=== PATIENT | female | born 1970 | race Caucasian/White ===

== ENCOUNTER → 2017-07-21 | Outpatient (CLI) | payer OTHER ==
--- NOTE | 2017-07-22 06:44 | CT ---
EXAMINATION TYPE: CT abdomen pelvis w con DATE OF EXAM: 07/21/2017 HISTORY: Right groin pain per patient. Abdominal and pelvic pain per order. CT DLP: 1913.8mGycm Automated Exposure Control for Dose Reduction was Utilized. CONTRAST: CT scan of the abdomen and pelvis is performed with IV Contrast, patient injected with 100 mL of Isov ue M300. COMPARISON: CT abdomen and pelvis December 10, 2013 FINDINGS: LUNG BASES: There is some central linear scarring and/or atelectasis redemonstrated bilaterally. LIVER/GB: No significant abnormality is appreciated. PANCREAS: No significant abnormality is seen. SPLEEN: Splenomegaly is redemonstrated measuring up to 17.5 cm long axis coronal image 61, this is pe rhaps even slightly larger versus prior exam ADRENALS: No significant abnormality is seen. KIDNEYS: There is redemonstration of subcentimeter round low dense lesions scattered throughout both kidneys felt to reflect simple cysts. BOWEL: Appendix does not fill with contrast but does not show suspicious surrounding inflammatory alia nge. It is mildly thickened up to 8 mm near base with gradual tapering towards the tip. Oral contrast reaches level of the sigmoid rectal colon. There is no suspicious small or large bowel dilatation. UTERUS/ADNEXA: Uterus is surgically absent or markedly atrophic in appearance. Left ovary is unremark able on axial image 64. Right ovary is slightly larger with medial 2.6 x 2.4 cm round low dense lesio n favoring small ovarian cyst axial image 64. This can be confirmed with pelvic ultrasound follow-up if desired. LYMPH NODES: No greater than 1cm abdominal or pelvic lymph nodes are appreciated. OSSEOUS STRUCTURES: Sclerotic foci right femoral head and left superior acetabulum coronal image 78 f avor benign bone islands not significantly changed from prior. OTHER: No significant additional abnormality is seen. IMPRESSION: Increasing splenomegaly noted may warrant further clinical workup. Mildly dilated appendi ceal base without surrounding inflammatory change. Probable 2.6 cm right ovarian cyst. Consider pelvi c ultrasound confirmation.
== END | disposition home or self-care (01) ==
LOC: RADCTMAIN 13:47
PROVIDERS: ATTEND Internal Medicine
DX: R16.1 Splenomegaly, not elsewhere classified (principal); R10.31 Right lower quadrant pain
CPT/HCPCS: 74177; Q9967

== ENCOUNTER 2017-10-22 21:58 | Emergency (ER) | payer OTHER ==
[2017-10-22] MEDS ORDERED: KETOROLAC 30 MG/ML 1 ML VIAL IVP STA (23:24)
--- NOTE | 2017-10-22 23:28 | ED ---
Abdominal Pain HPI - General Chief Complaint: Abdominal Pain Stated Complaint: Abd pain Time Seen by Provider: 10/22/17 22:58 Source: patient Mode of arrival: ambulatory Limitations: no limitations - History of Present Illness Initial Comments: This patient is a 47-year-old woman who presents to be evaluated for right lower quadrant pain that started approximately 2-3 hours ago, while she was sitting on the couch. Patient describes pain as being constant, sharp, moderate intensity. Patient is referring to it as an ovarian cyst though she states she does not have a history of this. Patient denies any associated symptoms. She has not discovered any relieving factors and states that the pain is worse if you press on it. MD Complaint: abdominal pain Onset/Timin -: hour(s) Location: RLQ Radiation: none Migration to: no migration Severity: moderate Quality: sharp Consistency: constant Improves With: nothing Worsens With: nothing Associated Symptoms: denies other symptoms - Related Data Previous Rx's Medication Instructions Recorded Dicyclomine [Bentyl] 20 mg PO QID #15 tablet 10/23/17 Allergies Allergy/AdvReac Type Severity Reaction Status Date / Time adhesive tape Allergy Rash/Hives Verified 10/22/17 22:38 Review of Systems ROS Statement: Those systems with pertinent positive or pertinent negative responses have been documented in the HPI. ROS Other: All systems not noted in ROS Statement are negative. Constitutional: Denies: fever, chills Respiratory: Denies: cough, dyspnea, wheezes Cardiovascular: Denies: chest pain, palpitations, edema Gastrointestinal: Reports: as per HPI, abdominal pain. Denies: nausea, vomiting , diarrhea Genitourinary: Denies: dysuria, hematuria Musculoskeletal: Denies: back pain Skin: Denies: rash Neurological: Denies: headache, weakness, numbness Past Medical History Additional Past Medical History / Comment(s): ovarian cysts History of Any Multi-Drug Resistant Organisms: None Reported Past Surgical History: Hysterectomy Past Psychological History: No Psychological Hx Reported Smoking Status: Never smoker Past Alcohol Use History: None Reported Past Drug Use History: None Reported General Exam Limitations: no limitations General appearance: alert, in no apparent distress Head exam: Present: atraumatic, normocephalic Eye exam: Present: normal appearance. Absent: scleral icterus, conjunctival injection ENT exam: Present: normal oropharynx Respiratory exam: Present: normal lung sounds bilaterally. Absent: respiratory distress, wheezes, rales, rhonchi, stridor Cardiovascular Exam: Present: regular rate, normal rhythm, normal heart sounds. Absent: systolic murmur, diastolic murmur, rubs, gallop GI/Abdominal exam: Present: soft, tenderness. Absent: distended, guarding, rebound, rigid, mass, pulsatile mass, hernia Extremities exam: Present: normal inspection, normal capillary refill. Absent: pedal edema, calf tenderness Back exam: Present: normal inspection. Absent: CVA tenderness (R), CVA tenderness (L) Neurological exam: Present: alert Skin exam: Present: warm, dry, intact, normal color. Absent: rash Course Vital Signs 10/22/17 21:59 Temperature 98 F Pulse Rate 88 Respiratory 20 Rate Blood Pressure 185/106 O2 Sat by Pulse 98 Oximetry Medical Decision Making - Lab Data Result diagrams: 10/22/17 23:44 10/22/17 23:44 Lab Results 10/22/17 10/22/17 10/22/17 Range/Units 23:44 23:44 23:44 WBC 7.5 (3.8-10.6) k/uL RBC 4.98 (3.80-5.40) m/uL Hgb 13.9 (11.4-16.0) gm/dL Hct 41.0 (34.0-46.0) % MCV 82.2 (80.0-100.0) fL MCH 27.8 (25.0-35.0) pg MCHC 33.8 (31.0-37.0) g/dL RDW 14.2 (11.5-15.5) % Plt Count 154 (150-450) k/uL Neutrophils % 69 % Lymphocytes % 23 % Monocytes % 5 % Eosinophils % 0 % Basophils % 0 % Neutrophils # 5.2 (1.3-7.7) k/uL Lymphocytes # 1.8 (1.0-4.8) k/uL Monocytes # 0.4 (0-1.0) k/uL Eosinophils # 0.0 (0-0.7) k/uL Basophils # 0.0 (0-0.2) k/uL Sodium 140 (137-145) mmol/L Potassium 3.6 (3.5-5.1) mmol/L Chloride 105 (98-107) mmol/L Carbon Dioxide 24 (22-30) mmol/L Anion Gap 11 mmol/L BUN 8 (7-17) mg/dL Creatinine 0.70 (0.52-1.04) mg/dL Est GFR (CKD-EPI)AfAm >90 (>60 ml/min/1.73 sqM) Est GFR (CKD-EPI)NonAf >90 (>60 ml/min/1.73 sqM) Glucose 94 (74-99) mg/dL Calcium 9.2 (8.4-10.2) mg/dL Total Bilirubin 0.7 (0.2-1.3) mg/dL AST 23 (14-36) U/L ALT 29 (9-52) U/L Alkaline Phosphatase 72 (38-126) U/L Total Protein 7.3 (6.3-8.2) g/dL Albumin 4.2 (3.5-5.0) g/dL Amylase 52 (30-110) U/L Lipase 40 (23-300) U/L Urine Color Urine Appearance (Clear) Urine pH (5.0-8.0) Ur Specific [place] (1.001-1.035) Urine Protein (Negative) Urine Glucose (UA) (Negative) Urine Ketones (Negative) Urine Blood (Negative) Urine Nitrite (Negative) Urine Bilirubin (Negative) Urine Urobilinogen (<2.0) mg/dL Ur Leukocyte Esterase (Negative) Urine HCG, Qual Not Detected (Not Detectd) 10/22/17 Range/Units 23:44 WBC (3.8-10.6) k/uL RBC (3.80-5.40) m/uL Hgb (11.4-16.0) gm/dL Hct (34.0-46.0) % MCV (80.0-100.0) fL MCH (25.0-35.0) pg MCHC (31.0-37.0) g/dL RDW (11.5-15.5) % Plt Count (150-450) k/uL Neutrophils % % Lymphocytes % % Monocytes % % Eosinophils % % Basophils % % Neutrophils # (1.3-7.7) k/uL Lymphocytes # (1.0-4.8) k/uL Monocytes # (0-1.0) k/uL Eosinophils # (0-0.7) k/uL Basophils # (0-0.2) k/uL Sodium (137-145) mmol/L Potassium (3.5-5.1) mmol/L Chloride (98-107) mmol/L Carbon Dioxide (22-30) mmol/L Anion Gap mmol/L BUN (7-17) mg/dL Creatinine (0.52-1.04) mg/dL Est GFR (CKD-EPI)AfAm (>60 ml/min/1.73 sqM) Est GFR (CKD-EPI)NonAf (>60 ml/min/1.73 sqM) Glucose (74-99) mg/dL Calcium (8.4-10.2) mg/dL Total Bilirubin (0.2-1.3) mg/dL AST (14-36) U/L ALT (9-52) U/L Alkaline Phosphatase (38-126) U/L Total Protein (6.3-8.2) g/dL Albumin (3.5-5.0) g/dL Amylase (30-110) U/L Lipase (23-300) U/L Urine Color Light Yellow Urine Appearance Clear (Clear) Urine pH 6.0 (5.0-8.0) Ur Specific [place] 1.006 (1.001-1.035) Urine Protein Negative (Negative) Urine Glucose (UA) Negative (Negative) Urine Ketones Negative (Negative) Urine Blood Negative (Negative) Urine Nitrite Negative (Negative) Urine Bilirubin Negative (Negative) Urine Urobilinogen <2.0 (<2.0) mg/dL Ur Leukocyte Esterase Negative (Negative) Urine HCG, Qual (Not Detectd) Disposition Clinical Impression: Abdominal pain Disposition: HOME SELF-CARE Condition: Good Instructions: Abdominal Pain (ED) Prescriptions: Dicyclomine [Bentyl] 20 mg PO QID #15 tablet Is patient prescribed a controlled substance at d/c from ED?: No Referrals: Farnaz Foster MD [Primary Care Provider] - 1-2 days Marianela Lyles MD [STAFF PHYSICIAN] - 1-2 days
[2017-10-22 23:55] LABS: Appearance,Urine Clear (Clear); Basophils % (A) 0 %; Bilirubin,Urine Negative (Negative); Blood,Urine Negative (Negative); Color,Urine Light Yellow; Eosinophils % (A) 0 %; Glucose,Urine (UA) Negative (Negative); HGB 13.9 gm/dL (11.4-16.0); Ketones,Urine Negative (Negative); Leukocyte Esterase,Urine Negative (Negative); Lymphocytes # (A) 1.8 k/uL (1.0-4.8); Lymphocytes % (A) 23 %; MCH 27.8 pg (25.0-35.0); MCHC 33.8 g/dL (31.0-37.0); MCV 82.2 fL (80.0-100.0); Mean Platelet Volume 8.2; Monocytes # (A) 0.4 k/uL (0-1.0); Monocytes % (A) 5 %; Neutrophils # (A) 5.2 k/uL (1.3-7.7); Neutrophils % (A) 69 %; Nitrite,Urine Negative (Negative); Platelet Count 154 k/uL (150-450); Protein,Urine Negative (Negative); RBC 4.98 m/uL (3.80-5.40); RDW 14.2 % (11.5-15.5); Specific Gravity,Urine 1.006 (1.001-1.035); Urobilinogen,Urine <2.0 mg/dL (<2.0); WBC 7.5 k/uL (3.8-10.6)
--- NOTE | 2017-10-23 00:16 | XR ---
EXAMINATION TYPE: XR KUB DATE OF EXAM: 10/23/2017 COMPARISON: NONE HISTORY: Right lower quadrant pain TECHNIQUE: 2 views FINDINGS: 2 upright views show normal bowel gas pattern. There is no sign of intestinal obstruction o r pneumoperitoneum. Fecal pattern is normal. There are no pathologic calcifications over the kidneys. Lung bases are clear. There is no evidence of a mass. IMPRESSION: Nonacute abdomen.
[2017-10-23 00:40] LABS: ALT 29 U/L (9-52); AST 23 U/L (14-36); Albumin 4.2 g/dL (3.5-5.0); Alkaline Phosphatase 72 U/L (38-126); Amylase 52 U/L (30-110); Anion Gap 11 mmol/L; Blood Urea Nitrogen 8 mg/dL (7-17); Calcium 9.2 mg/dL (8.4-10.2); Carbon Dioxide 24 mmol/L (22-30); Chloride 105 mmol/L (98-107); Glucose 94 mg/dL (74-99); Lipase 40 U/L (23-300); Potassium 3.6 mmol/L (3.5-5.1); Sodium 140 mmol/L (137-145); Total Bilirubin 0.7 mg/dL (0.2-1.3); Total Protein 7.3 g/dL (6.3-8.2)
--- NOTE | 2017-10-23 01:43 | CT ---
EXAMINATION TYPE: CT abdomen pelvis wo con DATE OF EXAM: 10/23/2017 COMPARISON: 07/21/2017 HISTORY: RLQ pain CT DLP: 1238.30 mGycm Automated exposure control for dose reduction was used. TECHNIQUE: Helical acquisition of images was performed from the lung bases through the pelvis. FINDINGS: There is a 5 mm subpleural nodule in the posterior left lung base. This appears unchanged. There is n o pleural effusion. Spleen is large and measures 13 x 7 cm. Liver shows no focal defect. Bile ducts are not dilated. Gall bladder appears normal. There is no adrenal mass. Appendix appears normal. The kidneys have normal si ze and contour. There is no hydronephrosis. I see no intestinal wall thickening. There are no dilated loops. There is no ascites. There is no sig n of free air. Bladder distends smoothly. There is no pelvic mass. There is subcutaneous edema over t he lower lumbar spine. IMPRESSION: THERE IS SOME SPLENOMEGALY UNCHANGED COMPARED TO OLD EXAM. THERE IS CLEARING OF A 2.5 CM RIGHT OVARIA N CYST COMPARED TO OLD EXAM. NORMAL APPENDIX. I DO NOT SEE A CAUSE FOR RIGHT LOWER QUADRANT PAIN.
[2017-10-23 02:34] VITALS: BP 176/86; PULSE 65; RESP 18; TEMP 97.9
== END 2017-10-23 02:32 | disposition home or self-care (01) ==
LOC: EC 21:58
DX: R10.31 Right lower quadrant pain (principal); Z91.048 Other nonmedicinal substance allergy status; Z87.42 Personal history of other diseases of the female genital tract; Z90.710 Acquired absence of both cervix and uterus
CPT/HCPCS: 36415; 80053; 82150; 83690; 85025; 81003; 81025; 74018; 74176; 99284; 96374; J1885

== ENCOUNTER 2019-09-30 11:01 | Emergency (ER) | payer OTHER ==
[2019-09-30] MEDS ORDERED: KETOROLAC 30 MG/ML 1 ML VIAL IVP STA (11:22)
[2019-09-30] MEDS ORDERED: SODIUM CHLORIDE 0.9% 1,000 ML IV STA (11:22)
--- NOTE | 2019-09-30 11:40 | ED ---
Abdominal Pain HPI - General Chief Complaint: Abdominal Pain Stated Complaint: back pain Time Seen by Provider: 09/30/19 11:13 Source: patient Mode of arrival: wheelchair Limitations: no limitations - History of Present Illness Initial Comments: Patient is a 49-year-old female presenting to the emergency Department with complaints of right lower quadrant pain that is radiating into her groin as well as into her right low back. Patient states his flank going on for 3 days. She states the pain is currently a 10 out of 10. She states the pain has been intermittent, going up and down. She denies history of kidney stones. She admits to history of hysterectomy, no other abdominal surgeries. She denies recent fever, chills, nausea, vomiting. She did have 1 bout of diarrhea yesterday. She denies any urinary complaints such as dysuria or increased frequency. She denies chest pain or shortness of breath. She has no further complaints at this time. Upon arrival to the ER, her blood pressure is increased to 193/91, rest of vitals normal. - Related Data Previous Rx's Medication Instructions Recorded Dicyclomine [Bentyl] 20 mg PO QID #15 tablet 10/23/17 Ketorolac [Toradol] 10 mg PO Q8HR #10 tab 09/30/19 Ondansetron Odt [Zofran Odt] 4 mg PO Q8HR PRN #10 tab 09/30/19 Allergies Allergy/AdvReac Type Severity Reaction Status Date / Time adhesive tape Allergy Rash/Hives Verified 09/30/19 11:07 Review of Systems ROS Statement: Those systems with pertinent positive or pertinent negative responses have been documented in the HPI. ROS Other: All systems not noted in ROS Statement are negative. Past Medical History Additional Past Medical History / Comment(s): ovarian cysts History of Any Multi-Drug Resistant Organisms: None Reported Past Surgical History: Hysterectomy Additional Past Surgical History / Comment(s): partial hysterectomy due to fibroids Past Psychological History: No Psychological Hx Reported Smoking Status: Never smoker Past Alcohol Use History: None Reported Past Drug Use History: None Reported General Exam - General Exam Comments Initial Comments: GENERAL: Well-appearing, well-nourished and in no acute distress. HEAD: Atraumatic, normocephalic. EYES: Pupils equal round and reactive to light, extraocular movements intact, sclera anicteric, conjunctiva are normal. ENT: TMs normal, nares patent, oropharynx clear without exudates. Moist mucous memb ranes. NECK: Normal range of motion, supple without lymphadenopathy or JVD. LUNGS: Breath sounds clear to auscultation bilaterally and equal. No wheezes rales or rhonchi. HEART: Regular rate and rhythm without murmurs, rubs or gallops. ABDOMEN: Tender to palpation in the right lower quadrant, right side of the abdomen. No flank pain. Soft, normoactive bowel sounds. No guarding, no rebound. No masses appreciated. : Deferred EXTREMITIES: Normal range of motion, no pitting or edema. No clubbing or cyanosis. NEUROLOGICAL: Normal speech, normal gait. PSYCH: Normal mood, normal affect. SKIN: Warm, Dry, normal turgor, no rashes or lesions noted. Limitations: no limitations Course Vital Signs 09/30/19 09/30/19 09/30/19 11:07 12:30 14:05 Temperature 98 F 98.1 F Pulse Rate 87 74 77 Respiratory 18 16 20 Rate Blood Pressure 193/91 162/85 169/78 O2 Sat by Pulse 96 97 99 Oximetry Medical Decision Making - Medical Decision Making Patient is a 49-year-old female here for right lower quadrant, right side of abdomen pain with radiation into the groin and into the right low back 3 days. Patient was slightly hypertensive upon arrival. Labs reveal no acute findings. Normal white count. Urine shows no signs of infection, no hematuria. CT of the abdomen and pelvis shows some mild fullness in the right renal collecting system, no obstructing calculus is seen, this may represent a recently passed calculus. Bilateral ovarian cysts which patient is aware of. Patient was given fluids, Toradol. She reports mild improvement in her symptoms. I discussed these findings with the patient. Her symptoms are most likely related to a recently passed stone. Patient will be sent home with a 50 few tablets of Toradol, Zofran as needed for nausea. To give her urology referral. She is in agreement with this plan of care. Return parameters were discussed with the patient she verbalized understanding. Case discussed with Dr. Justin. - Lab Data Result diagrams: 09/30/19 11:45 09/30/19 11:45 Lab Results 09/30/19 09/30/19 09/30/19 Range/Units 11:45 11:45 11:45 WBC 6.7 (3.8-10.6) k/uL RBC 5.13 (3.80-5.40) m/uL Hgb 14.2 (11.4-16.0) gm/dL Hct 43.4 (34.0-46.0) % MCV 84.6 (80.0-100.0) fL MCH 27.7 (25.0-35.0) pg MCHC 32.7 (31.0-37.0) g/dL RDW 14.1 (11.5-15.5) % Plt Count 149 L (150-450) k/uL Neutrophils % 74 % Lymphocytes % 19 % Monocytes % 5 % Eosinophils % 0 % Basophils % 0 % Neutrophils # 4.9 (1.3-7.7) k/uL Lymphocytes # 1.3 (1.0-4.8) k/uL Monocytes # 0.3 (0-1.0) k/uL Eosinophils # 0.0 (0-0.7) k/uL Basophils # 0.0 (0-0.2) k/uL Sodium 139 (137-145) mmol/L Potassium 3.9 (3.5-5.1) mmol/L Chloride 106 (98-107) mmol/L Carbon Dioxide 24 (22-30) mmol/L Anion Gap 9 mmol/L BUN 6 L (7-17) mg/dL Creatinine 0.63 (0.52-1.04) mg/dL Est GFR (CKD-EPI)AfAm >90 (>60 ml/min/1.73 sqM) Est GFR (CKD-EPI)NonAf >90 (>60 ml/min/1.73 sqM) Glucose 111 H (74-99) mg/dL Plasma Lactic Acid Alex (0.7-2.0) mmol/L Calcium 9.1 (8.4-10.2) mg/dL Total Bilirubin 0.8 (0.2-1.3) mg/dL AST 24 (14-36) U/L ALT 17 (4-34) U/L Alkaline Phosphatase 73 (38-126) U/L Total Protein 7.6 (6.3-8.2) g/dL Albumin 4.3 (3.5-5.0) g/dL Amylase 40 (30-110) U/L Lipase 46 (23-300) U/L Urine Color Yellow Urine Appearance Slightly Cloudy H (Clear) Urine pH 7.0 (5.0-8.0) Ur Specific [place] 1.005 (1.001-1.035) Urine Protein 1+ (Negative) Urine Glucose (UA) Negative (Negative) Urine Ketones 1+ (Negative) Urine Blood Negative (Negative) Urine Nitrite Negative (Negative) Urine Bilirubin Negative (Negative) Urine Urobilinogen <2.0 (<2.0) mg/dL Ur Leukocyte Esterase Negative (Negative) Urine RBC 1 (0-5) /hpf Urine WBC 2 (0-5) /hpf Ur Squamous Epith Cells 5 H (0-4) /hpf Urine Bacteria Rare H (None) /hpf 09/30/19 Range/Units 11:45 WBC (3.8-10.6) k/uL RBC (3.80-5.40) m/uL Hgb (11.4-16.0) gm/dL Hct (34.0-46.0) % MCV (80.0-100.0) fL MCH (25.0-35.0) pg MCHC (31.0-37.0) g/dL RDW (11.5-15.5) % Plt Count (150-450) k/uL Neutrophils % % Lymphocytes % % Monocytes % % Eosinophils % % Basophils % % Neutrophils # (1.3-7.7) k/uL Lymphocytes # (1.0-4.8) k/uL Monocytes # (0-1.0) k/uL Eosinophils # (0-0.7) k/uL Basophils # (0-0.2) k/uL Sodium (137-145) mmol/L Potassium (3.5-5.1) mmol/L Chloride (98-107) mmol/L Carbon Dioxide (22-30) mmol/L Anion Gap mmol/L BUN (7-17) mg/dL Creatinine (0.52-1.04) mg/dL Est GFR (CKD-EPI)AfAm (>60 ml/min/1.73 sqM) Est GFR (CKD-EPI)NonAf (>60 ml/min/1.73 sqM) Glucose (74-99) mg/dL Plasma Lactic Acid Alex 1.7 (0.7-2.0) mmol/L Calcium (8.4-10.2) mg/dL Total Bilirubin (0.2-1.3) mg/dL AST (14-36) U/L ALT (4-34) U/L Alkaline Phosphatase (38-126) U/L Total Protein (6.3-8.2) g/dL Albumin (3.5-5.0) g/dL Amylase (30-110) U/L Lipase (23-300) U/L Urine Color Urine Appearance (Clear) Urine pH (5.0-8.0) Ur Specific [place] (1.001-1.035) Urine Protein (Negative) Urine Glucose (UA) (Negative) Urine Ketones (Negative) Urine Blood (Negative) Urine Nitrite (Negative) Urine Bilirubin (Negative) Urine Urobilinogen (<2.0) mg/dL Ur Leukocyte Esterase (Negative) Urine RBC (0-5) /hpf Urine WBC (0-5) /hpf Ur Squamous Epith Cells (0-4) /hpf Urine Bacteria (None) /hpf Disposition Clinical Impression: Right flank pain, Hydronephrosis, right Disposition: HOME SELF-CARE Condition: Stable Instructions (If sedation given, give patient instructions): Kidney Stones (ED) Additional Instructions: Please return to the Emergency Department if symptoms worsen or any other concerns. Take medications as prescribed as needed for pain. Follow up with urologist as discussed. Prescriptions: Ketorolac [Toradol] 10 mg PO Q8HR #10 tab Ondansetron Odt [Zofran Odt] 4 mg PO Q8HR PRN #10 tab PRN Reason: Nausea Is patient prescribed a controlled substance at d/c from ED?: No Referrals: Farnaz Foster MD [Primary Care Provider] - 1-2 days Bernard South MD [STAFF PHYSICIAN] - 1-2 days
[2019-09-30 12:02] LABS: Basophils % (A) 0 %; Eosinophils % (A) 0 %; HCT 43.4 % (34.0-46.0); HGB 14.2 gm/dL (11.4-16.0); Lymphocytes # (A) 1.3 k/uL (1.0-4.8); Lymphocytes % (A) 19 %; MCH 27.7 pg (25.0-35.0); MCHC 32.7 g/dL (31.0-37.0); MCV 84.6 fL (80.0-100.0); Mean Platelet Volume 8.9; Monocytes # (A) 0.3 k/uL (0-1.0); Monocytes % (A) 5 %; Neutrophils # (A) 4.9 k/uL (1.3-7.7); Neutrophils % (A) 74 %; Platelet Count 149 k/uL (150-450); RBC 5.13 m/uL (3.80-5.40); RDW 14.1 % (11.5-15.5); WBC 6.7 k/uL (3.8-10.6)
[2019-09-30 12:17] LABS: ALT 17 U/L (4-34); AST 24 U/L (14-36); African American GFR (CKD) >90 (>60 ml/min/1.73 sqM); Albumin 4.3 g/dL (3.5-5.0); Alkaline Phosphatase 73 U/L (38-126); Amylase 40 U/L (30-110); Anion Gap 9 mmol/L; Blood Urea Nitrogen 6 mg/dL (7-17); Calcium 9.1 mg/dL (8.4-10.2); Carbon Dioxide 24 mmol/L (22-30); Chloride 106 mmol/L (98-107); Glucose 111 mg/dL (74-99); Non-African American GFR(CKD) >90 (>60 ml/min/1.73 sqM); Potassium 3.9 mmol/L (3.5-5.1); Sodium 139 mmol/L (137-145); Total Bilirubin 0.8 mg/dL (0.2-1.3); Total Protein 7.6 g/dL (6.3-8.2)
--- NOTE | 2019-09-30 12:22 | CT ---
EXAMINATION TYPE: CT abdomen pelvis wo con DATE OF EXAM: 09/30/2019 COMPARISON: None. HISTORY: RLQ/right flank pain CT DLP: 1167.4 mGycm Automated exposure control for dose reduction was used. FINDINGS: Visualized portions of the lungs are clear. There is no pleural or pericardial fluid. The h eart is not enlarged. Within the abdomen, there is hepatosplenomegaly. The liver measures 20 cm. The spleen measures 18 cm. The gallbladder is unremarkable. Both adrenal glands are normal. The left kidney is normal. 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 There is mild fullness of the collecting system. No obstructing ureteri c calculus is seen. The bladder is unremarkable. Limited views of the pancreas are unremarkable. There is no significant retroperitoneal, iliac or inguinal adenopathy. The uterus is not visualized. There are bilateral ovarian cysts the one on the right measures 2.8 cm. The one on the left measuring 1.7 cm. Much of the left side of the colon is collapsed. This makes it difficult to assess bowel wall thickne ss. The appendix is normal. Small bowel loops are normal in their caliber. There is no free air and no free fluid identified. IMPRESSION: 1. ALTHOUGH THERE IS MILD FULLNESS IN THE RIGHT RENAL COLLECTING SYSTEM NONOBSTRUCTING CALCULUS IS SE EN. THIS MAY REPRESENT A RECENTLY PASSED CALCULUS. 2. NONOBSTRUCTING RIGHT-SIDED NEPHROLITHIASIS. 3. BILATERAL OVARIAN CYSTS. 4. HEPATOSPLENOMEGALY. 5. COLLAPSE OF MUCH OF THE LEFT SIDE OF THE COLON MAKES IT DIFFICULT TO ASSESS BOWEL WALL THICKENING. PLEASE CORRELATE TO EXCLUDE COLITIS.
[2019-09-30 13:02] LABS: Bacteria,Urine Rare /hpf; RBC,Urine 1 /hpf (0-5); Squamous Epithelial Cell,Urine 5 /hpf (0-4); WBC,Urine 2 /hpf (0-5)
[2019-09-30 13:14] LABS: Appearance,Urine Slightly Cloudy (Clear); Color,Urine Yellow; Specific Gravity,Urine 1.005 (1.001-1.035)
[2019-09-30 13:15] LABS: Bilirubin,Urine Negative (Negative); Blood,Urine Negative (Negative); Glucose,Urine (UA) Negative (Negative); Ketones,Urine 1+ (Negative); Leukocyte Esterase,Urine Negative (Negative); Nitrite,Urine Negative (Negative); Protein,Urine 1+ (Negative); Urobilinogen,Urine <2.0 mg/dL (<2.0)
[2019-09-30] MEDS ORDERED: traMADol 50 MG STARTER PACK 3 TAB BTL PO STA (13:37)
[2019-09-30 14:13] VITALS: BP 169/78; PULSE 77; RESP 20; TEMP 98.1
== END 2019-09-30 14:05 | disposition home or self-care (01) ==
LOC: EC 11:01
DX: N13.30 Unspecified hydronephrosis (principal); N83.201 Unspecified ovarian cyst, right side; N83.202 Unspecified ovarian cyst, left side; R03.0 Elevated blood-pressure reading, without diagnosis of hypertension; Z90.710 Acquired absence of both cervix and uterus; Z91.048 Other nonmedicinal substance allergy status
CPT/HCPCS: 36415; 80053; 82150; 83605; 83690; 85025; 81001; 74176; 99284; 96374; 96361; J1885

== ENCOUNTER → 2020-06-14 | Outpatient (CLI) | payer OTHER ==
--- NOTE | 2020-06-17 12:01 | MM ---
Reason for exam: screening (asymptomatic). Last mammogram was performed 4 years and 3 months ago. History: Patient is postmenopausal and is nulliparous. Physical Findings: A clinical breast exam by your physician is recommended on an annual basis and results should be correlated with mammographic findings. MG Screening Mammo w CAD Bilateral CC and MLO view(s) were taken. Prior study comparison: March 17, 2016, bilateral MG screening mammo w CAD. February 22, 2015, bilateral MG screening mammo w CAD. The breast tissue is heterogeneously dense. This may lower the sensitivity of mammography. There is chronic nodularity in theleft upper outer quadrant, decreased in size from 2016. There is no discrete abnormality. ASSESSMENT: Benign, BI-RAD 2 RECOMMENDATION: Routine screening mammogram of both breasts in 1 year.
== END ==
LOC: RADMAMWWP 10:57
PROVIDERS: ATTEND Internal Medicine
DX: Z12.31 Encounter for screening mammogram for malignant neoplasm of breast (principal); Z78.0 Asymptomatic menopausal state
CPT/HCPCS: 77067

== ENCOUNTER 2020-10-14 14:32 | Emergency (ER) | payer OTHER ==
[2020-10-14] MEDS ORDERED: LIDOCAINE 1% INJ 10MG/ML (20 ML MDV) SQ ONE (14:53)
[2020-10-14] MEDS ORDERED: ACET/COD 300 MG/30 MG STARTER PACK 6 TAB BTL PO STA (14:53)
--- NOTE | 2020-10-14 15:14 | ED ---
ENT HPI - General Chief complaint: Dental/Oral Stated complaint: Dental Pain Time Seen by Provider: 10/14/20 14:42 Source: patient Mode of arrival: ambulatory Limitations: no limitations - History of Present Illness Initial comments: 30-year-old male presents to emergency department with a chief complaint abdominal pain. Patient reports she has been his parents and pain in the left lower side of her mouth for the last several days. She has not seen a dentist in quite some time. Patient reports pain is worse whenever she is eating and alleviated at rest. Denies any facial swelling fevers or chills. She is not diabetic. - Related Data Previous Rx's Medication Instructions Recorded Dicyclomine [Bentyl] 20 mg PO QID #15 tablet 10/23/17 Ketorolac [Toradol] 10 mg PO Q8HR #10 tab 09/30/19 Ondansetron Odt [Zofran Odt] 4 mg PO Q8HR PRN #10 tab 09/30/19 Amoxicillin/Potassium Clav 1 tab PO Q12HR #20 tab 10/14/20 [Augmentin 875-125 Tablet] Allergies Allergy/AdvReac Type Severity Reaction Status Date / Time adhesive tape Allergy Rash/Hives Verified 10/14/20 14:36 Review of Systems ROS Statement: Those systems with pertinent positive or pertinent negative responses have been documented in the HPI. ROS Other: All systems not noted in ROS Statement are negative. Past Medical History Additional Past Medical History / Comment(s): ovarian cysts History of Any Multi-Drug Resistant Organisms: None Reported Past Surgical History: Hysterectomy Additional Past Surgical History / Comment(s): partial hysterectomy due to fibroids Past Psychological History: No Psychological Hx Reported Smoking Status: Never smoker Past Alcohol Use History: Occasional Past Drug Use History: None Reported General Exam Limitations: no limitations General appearance: alert, in no apparent distress, obese Head exam: Present: atraumatic, normocephalic, normal inspection Eye exam: Present: normal appearance, PERRL, EOMI Pupils: Present: normal accommodation ENT exam: Present: normal exam, mucous membranes moist. Absent: normal oropharynx (Poor dentition. No signs of periapical abscess. Tenderness of tooth #21.) Neck exam: Present: normal inspection, full ROM. Absent: tenderness Respiratory exam: Present: normal lung sounds bilaterally. Absent: respiratory distress Cardiovascular Exam: Present: regular rate, normal rhythm, normal heart sounds. Absent: systolic murmur Extremities exam: Present: normal inspection, full ROM, normal capillary refill Back exam: Present: normal inspection, full ROM Neurological exam: Present: alert, oriented X3 Psychiatric exam: Present: normal affect, normal mood Skin exam: Present: warm, dry, intact, normal color Course Vital Signs 10/14/20 14:34 Temperature 98.2 F Pulse Rate 84 Respiratory 18 Rate Blood Pressure 193/89 O2 Sat by Pulse 96 Oximetry Procedures - Nerve Block Consent Obtained: verbal consent Local Anesthetic Used: Lidocaine 1% Amount of anesthesia used: 2 Side: left Intraoral Nerve Block: inferior alveolar Procedure Successful: Yes Complications: none Patient Tolerated Procedure: well, no complications Medical Decision Making - Medical Decision Making 50-year-old female presents emergency Department with a chief complaint of dental pain. No signs of periapical abscess with facial swelling. Patient will be started on Augmentin. Given Tylenol 3 starter pack. Also a dental block was performed here with success. [facility] gave [facility] Return parameters were discussed with patient is an ascending agreeable. Case discussed with physician. Disposition Clinical Impression: Toothache Disposition: HOME SELF-CARE Condition: Stable Instructions (If sedation given, give patient instructions): Toothache (ED) Additional Instructions: Please return to the Emergency Department if symptoms worsen or any other concerns. Prescriptions: Amoxicillin/Potassium Clav [Augmentin 875-125 Tablet] 1 tab PO Q12HR #20 tab Is patient prescribed a controlled substance at d/c from ED?: No Referrals: Farnaz Foster MD [Primary Care Provider] - 1-2 days Time of Disposition: 15:14
[2020-10-14 15:47] VITALS: BP 172/80; PULSE 82; RESP 16; TEMP 98.1
== END 2020-10-14 15:46 | disposition home or self-care (01) ==
LOC: EC 14:32
DX: K08.89 Other specified disorders of teeth and supporting structures (principal); E66.9 Obesity, unspecified; Z79.899 Other long term (current) drug therapy; Z68.41 Body mass index [BMI] 40.0-44.9, adult
CPT/HCPCS: 64400; 99282; J2001

== ENCOUNTER → 2021-09-26 | Outpatient (CLI) | payer OTHER ==
--- NOTE | 2021-09-26 14:24 | BD ---
EXAMINATION TYPE: Axial Bone Density DATE OF EXAM: 09/26/2021 COMPARISON: BASELINE DEXA STUDY......NO PREVIOUS CLINICAL HISTORY: 51 years year old Female. ICD-10 CODE: N95.1 MENOPAUSAL AND FEMALE CLIMA Height: 63 Weight: 242 FRAX RISK QUESTIONS: NOTHING TO NOTE HERE RISK FACTORS HISTORY OF: Family History of Osteoporosis: YES, MOTHER, COMPRESSION FXs BACK Postmenopausal woman: PARTIAL HYST AT AGE 36 YRS OLD Hyperparathyroidism: NO Adrenal Insufficiency: NO MEDICATIONS: Additional Medications: MULTIVITAMIN, AND GREEN TEA TABLET Additional History: HYPOGLYCEMIC, EXAM MEASUREMENTS: Bone mineral densitometry was performed using the [employer] System. Bone mineral density as measured about the Lumbar spine is: ----- L1-L4(G/cm2): 1.311 T Score Values are as follows: ----- L1: 1.4 ----- L2: 0.6 ----- L3: 1.0 ----- L4: 1.2 ----- L1-L4: 1.1 Bone mineral density BASELINE STUDY Bone mineral density about the R hip (g/cm2): 1.143 Bone mineral density about the L hip (g/cm2): 1.253 T Score values are as follows: -----R Neck: -0.2 -----L Neck: 0.6 -----R Total: 1.1 -----L Total: 1.9 Bone mineral density BASELINE STUDY FRAX%s: The graph provided illustrates a 3.8% chance for a major osteoporotic fx and a 0.1% chance fo r the hips probability for fx in 10 years time. IMPRESSION: No evidence for osteoporosis or osteopenia NOTE: T-SCORE=SD OF THE YOUNG ADULT MEAN.
--- NOTE | 2021-09-29 11:39 | MM ---
Reason for Exam: Screening (asymptomatic). Last mammogram was performed 1 year(s) and 3 month(s) ago. Patient History: Menarche at age 11. Patient has no children. Hysterectomy at age 36. Postmenopausal. Patient used Hormonal Contraceptives for 5 years. Risk Values: Brandie 5 year model risk: 1.2%. NCI Lifetime model risk: 9.6%. Prior Study Comparison: 02/22/2015 Bilateral Screening Mammogram, [facility]. 03/17/2016 Bilateral Screening Mammogram, [facility]. 06/14/2020 Bilateral Screening Mammogram, [facility]. Tissue Density: The breast tissue is heterogeneously dense. This may lower the sensitivity of mammography. Findings: Analyzed By CAD. There is no suspicious group of microcalcifications or new suspicious mass in either breast. Overall Assessment: Negative, BI-RAD 1 Management: Screening Mammogram of both breasts in 1 year. A clinical breast exam by your physician is recommended on an annual basis and results should be correlated with mammographic findings. Electronically signed and approved by: Melvin Velazquez M.D. Radiologis
== END | disposition home or self-care (01) ==
LOC: RADMAMWWP 13:48
PROVIDERS: ATTEND Internal Medicine
DX: Z12.31 Encounter for screening mammogram for malignant neoplasm of breast (principal); Z78.0 Asymptomatic menopausal state
CPT/HCPCS: 77067; 77080

== ENCOUNTER 2021-11-16 21:58 | Emergency (ER) | payer OTHER ==
[2021-11-16 22:05] VITALS: BP 199/118; RESP 18; TEMP 97.8
[2021-11-16] MEDS ORDERED: predniSONE 50 MG TAB PO STA (22:14)
[2021-11-16] MEDS ORDERED: diphenhydrAMINE 25 MG CAP PO STA (22:14)
[2021-11-16] MEDS ORDERED: FAMOTIDINE 20 MG TAB PO STA (22:14)
--- NOTE | 2021-11-16 22:25 | ED ---
General Adult HPI - General Chief complaint: Allergic Reaction Stated complaint: Allergic reaction Time Seen by Provider: 11/16/21 22:09 Source: patient, RN notes reviewed Mode of arrival: ambulatory - History of Present Illness Initial comments: Patient is a pleasant 51-year-old female presenting to the emergency Department with lip swelling. Onset of symptoms was around an hour ago. No discomfort. Area of involvement his right lower lip. No history of similar symptoms previously. No rash. No new medications or exposures. No new foods. Patient does not take any prescription medications. - Related Data Previous Rx's Medication Instructions Recorded Dicyclomine [Bentyl] 20 mg PO QID #15 tablet 10/23/17 Ketorolac [Toradol] 10 mg PO Q8HR #10 tab 09/30/19 Ondansetron Odt [Zofran Odt] 4 mg PO Q8HR PRN #10 tab 09/30/19 Amoxicillin/Potassium Clav 1 tab PO Q12HR #20 tab 10/14/20 [Augmentin 875-125 Tablet] predniSONE [Deltasone] 20 mg PO BID #10 tab 11/16/21 Allergies Allergy/AdvReac Type Severity Reaction Status Date / Time adhesive tape Allergy Rash/Hives Verified 11/16/21 22:05 Review of Systems ROS Statement: Those systems with pertinent positive or pertinent negative responses have been documented in the HPI. ROS Other: All systems not noted in ROS Statement are negative. Constitutional: Denies: fever Eyes: Denies: eye pain ENT: Reports: as per HPI. Denies: ear pain Respiratory: Denies: cough, dyspnea Cardiovascular: Denies: chest pain Endocrine: Denies: fatigue Gastrointestinal: Denies: abdominal pain Genitourinary: Denies: dysuria Musculoskeletal: Denies: back pain Skin: Denies: rash Neurological: Denies: weakness Past Medical History Additional Past Medical History / Comment(s): ovarian cysts History of Any Multi-Drug Resistant Organisms: None Reported Past Surgical History: Hysterectomy Additional Past Surgical History / Comment(s): partial hysterectomy due to fibroids Past Psychological History: No Psychological Hx Reported Smoking Status: Never smoker Past Alcohol Use History: Occasional Past Drug Use History: None Reported General Exam Limitations: no limitations General appearance: alert, in no apparent distress Head exam: Present: normocephalic Eye exam: Present: normal appearance ENT exam: Present: other (Mild swelling right lower lip. No swelling of the tongue or uvula or pharynx) Neck exam: Present: normal inspection Respiratory exam: Present: normal lung sounds bilaterally. Absent: respiratory distress, wheezes Cardiovascular Exam: Present: regular rate, normal rhythm GI/Abdominal exam: Present: soft. Absent: tenderness Extremities exam: Present: normal inspection Neurological exam: Present: alert Psychiatric exam: Present: normal affect, normal mood Skin exam: Present: normal color. Absent: rash, urticaria Course Vital Signs 11/16/21 11/16/21 22:03 22:35 Temperature 97.8 F Pulse Rate 88 71 Respiratory 18 Rate Blood Pressure 199/118 O2 Sat by Pulse 98 96 Oximetry Medical Decision Making - Medical Decision Making Patient reevaluated and unchanged. Patient updated on need for follow-up and plan. Disposition Clinical Impression: Angioedema Disposition: HOME SELF-CARE Condition: Stable Instructions (If sedation given, give patient instructions): Angioedema (ED) Additional Instructions: Please follow-up with primary care physician in the next day or 2 for recheck. Continue [id number] antihistamines such as Benadryl or Claritin or Cat for the next 5 days. Prescription for steroids has been sent to pharmacy. Return for difficulty breathing, increased swelling of the lip, swelling of the tongue or throat, worsening symptoms or other concerns. Prescriptions: predniSONE [Deltasone] 20 mg PO BID #10 tab Is patient prescribed a controlled substance at d/c from ED?: No Referrals: Niko Pichardo MD [Primary Care Provider] - 1-2 days Time of Disposition: 23:42
[2021-11-16 22:36] VITALS: PULSE 71
== END 2021-11-16 23:46 | disposition home or self-care (01) ==
LOC: SUPCPDRO 21:58 → EC 21:58
DX: T78.3XXA Angioneurotic edema, initial encounter (principal); Z91.09 Other allergy status, other than to drugs and biological substances
CPT/HCPCS: 99282; J7512

== ENCOUNTER → 2021-11-21 | Outpatient (CLI) | payer OTHER ==
[2021-11-21 18:16] LABS: Basophils # (A) 0 X 10*3/uL (0.00-0.10); Basophils % (A) 0 %; Eosinophils # (A) 0 X 10*3/uL (0.04-0.35); Eosinophils % (A) 0 %; HCT 42.3 % (37.2-46.3); HGB 14.1 g/dL (12.0-15.0); Immature Grans, Automated 0.5 %; Lymphocytes # (A) 1.11 X 10*3/uL (0.90-5.00); Lymphocytes % (A) 20.3 %; MCH 28.8 pg (27.0-32.0); MCHC 33.3 g/dL (32.0-37.0); MCV 86.5 fL (80.0-97.0); Mean Platelet Volume 12.6 fL (9.5-12.2); Monocytes # (A) 0.33 X 10*3/uL (0.20-1.00); NRBC Per 100 WBC 0 /100 WBCS (0.0-0.0); Neutrophils # (A) 3.99 X 10*3/uL (1.80-7.70); Neutrophils % (A) 73.2 %; Platelet Count 124 X 10*3/uL (140-440); RBC 4.89 X 10*6/uL (4.10-5.20); RDW 13.6 % (11.5-14.5); WBC 5.46 X 10*3/uL (4.50-10.00)
[2021-11-21 18:18] LABS: African American GFR (CKD) 98.2 (60.0-200.0); Albumin 4.7 g/dL (3.8-4.9); Albumin/Globulin Ratio 1.88 (1.60-3.17); Anion Gap 13.5 mmol/L (10.00-18.00); BUN/Creat Ratio 15.38 Ratio (12.00-20.00); Blood Urea Nitrogen 12.3 mg/dL (9.0-27.0); Calcium 9.2 mg/dL (8.7-10.3); Carbon Dioxide 22.5 mmol/L (20.0-27.5); Globulin 2.5 g/dL (1.6-3.3); Non-African American GFR(CKD) 84.8 (60.0-200.0); Potassium 3.7 mmol/L (3.5-5.5); Total Bilirubin 0.7 mg/dL (0.30-1.20); Total Protein 7.2 g/dL (6.2-8.2)
[2021-11-24 12:14] LABS: Albumin 4.37 g/dL (3.80-4.90); Gamma Globulin 1.11 g/dL (0.70-1.50)
== END | disposition home or self-care (01) ==
LOC: LABWHC1 11:29
PROVIDERS: ATTEND Internal Medicine
DX: L50.9 Urticaria, unspecified (principal)
CPT/HCPCS: 36415; 80053; 84165; 84166; 84443; 85025; 86038; 86140; 86160

== ENCOUNTER → 2022-11-10 | Outpatient (CLI) | payer OTHER ==
[2022-11-10 21:54] LABS: Basophils # (A) 0.01 X 10*3/uL (0.00-0.10); Basophils % (A) 0.2 %; Eosinophils # (A) 0 X 10*3/uL (0.04-0.35); Eosinophils % (A) 0 %; HCT 43.6 % (37.2-46.3); HGB 14.3 d/dL (12.0-15.0); Lymphocytes # (A) 1.68 X 10*3/uL (0.90-5.00); Lymphocytes % (A) 33.3 %; MCH 28.3 pg (27.0-32.0); MCHC 32.8 d/dL (32.0-37.0); MCV 86.2 FL (80.0-97.0); Mean Platelet Volume 12.1 FL (9.5-12.2); Monocytes # (A) 0.39 X 10*3/uL (0.20-1.00); Monocytes % (A) 7.7 %; NRBC Per 100 WBC 0 X 10*3/uL (0.00-0.01); Neutrophils # (A) 2.95 X 10*3/uL (1.80-7.70); Neutrophils % (A) 58.6 %; Platelet Count 111 X 10*3/uL (140-440); RBC 5.06 X 10*6/uL (4.10-5.20); RDW 13.5 % (11.5-14.5); WBC 5.04 X 10*3/uL (4.50-10.00)
[2022-11-10 22:01] LABS: Anion Gap 10.9 mmol/L (4.00-12.00); Carbon Dioxide 26.1 mmol/L (21.6-31.8); Potassium 4.5 mmol/L (3.5-5.5)
== END | disposition home or self-care (01) ==
LOC: LABPAT 15:27
PROVIDERS: ATTEND Internal Medicine Clinical Cardiac Electrophysiology
DX: Z01.812 Encounter for preprocedural laboratory examination (principal); M65.312 Trigger thumb, left thumb
CPT/HCPCS: 80051; 85025

== ENCOUNTER → 2022-11-16 | Outpatient (CLI) | payer OTHER ==
--- NOTE | 2022-11-17 08:58 | MM ---
Reason for Exam: Screening (asymptomatic). Last mammogram was performed 1 year(s) and 2 month(s) ago. Patient History: Menarche at age 11. Patient has no children. Hysterectomy at age 36. Postmenopausal. Patient used Hormonal Contraceptives for 5 years. Risk Values: Brandie 5 year model risk: 1.2%. NCI Lifetime model risk: 9.4%. Prior Study Comparison: 03/17/2016 Bilateral Screening Mammogram, [facility]. 06/14/2020 Bilateral Screening Mammogram, [facility]. 09/26/2021 Bilateral MG screening mammo w CAD, [facility]. Tissue Density: The breast tissue is heterogeneously dense. This may lower the sensitivity of mammography. Findings: Analyzed By CAD. There is no suspicious group of microcalcifications or new suspicious mass in either breast. Overall Assessment: Benign, BI-RAD 2 Management: Screening Mammogram of both breasts in 1 year. . Patient should continue monthly self-breast exams. A clinical breast exam by your physician is recommended on an annual basis. This exam should not preclude additional follow-up of suspicious palpable abnormalities. Note on Brandie scores and lifetime risk: 1. A Brandie score greater than 3% is considered moderate risk. If this is the case, consider specialist referral to assess eligibility for a risk reducing agent. 2. If overall lifetime risk for the development of breast cancer is 20% or higher, the patient may qualify for future screening with alternating mammogram and breast MRI. Electronically signed and approved by: Melvin Velazquez M.D. Radiologis
== END | disposition home or self-care (01) ==
LOC: RADMAMWWP 13:29
PROVIDERS: ATTEND Internal Medicine
DX: Z12.31 Encounter for screening mammogram for malignant neoplasm of breast (principal); Z78.0 Asymptomatic menopausal state
CPT/HCPCS: 77067

== ENCOUNTER 2022-11-25 09:07 | Day surgery (SDC) | payer OTHER ==
[2022-11-17 11:33] VITALS: BMI 39.8
--- NOTE | 2022-11-23 12:40 | P.HPOR ---
History of Present Illness H&P Date: 11/23/22 Subjective: This is a 52 year old female that presents today for initial evaluation regarding a several month history of progressively worsening left thumb pain with associated locking, catching, clicking and swelling. She denies any injury or inciting event but states that over the last several months. She is no longer been able to flex the thumb without excruciating pain. She has tried heat, ice and immobilization with no relief. She denies any other symptoms. Physical Examination: LUE: AIN/PIN/Radial/Ulnar/Median motor intact. Radial/Ulnar/Median SILT. 2+/4 Radial/Ulnar pulses palpated. 5/5 APB, 5/5 FDI. Negative Finkelsteins, negative CMC grind, negative Durkan's compression. Tenderness to palpation over left thumb A1 anyi with locking, catching and clicking appreciated with flexion and extension of the thumb IP joint. 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 Impression: 1.) Left thumb trigger finger Plan: Diagnosis and treatment options were discussed with the patient. We discussed both conservative and operative treatment options and the patient wished to proceed with a left thumb A1 anyi release due to the length of time she has been dealing with this and the severity of her symptoms. Risks and benefits of surgery including bleeding, infection, damage to surrounding tissue, need for further surgery, residual numbness were discussed and the patient wished to go forward with surgery. The patient was agreeable with this plan. -Vincent Mar DO Orthopedic Hand/Upper Extremity Surgeon Past Medical History Past Medical History: Diabetes Mellitus, Hypertension, Skin Disorder Additional Past Medical History / Comment(s): FREQUENT HIVES UNKNOWN ORIGIN (POSSIBLY ENVIROMENTAL ALLERGIES)-NO HIVES PRESENTLY History of Any Multi-Drug Resistant Organisms: None Reported Past Surgical History: Hysterectomy, Orthopedic Surgery, Tonsillectomy Additional Past Surgical History / Comment(s): partial hysterectomy due to fibroids, COLONOSCOPY, [facility] HAND [facility] Past Anesthesia/Blood Transfusion Reactions: Postoperative Nausea & Vomiting (PONV) Smoking Status: Never smoker - Past Family History Father Family Medical History: Cancer Additional Family Medical History / Comment(s): colon and lung cancer Medications and Allergies Home Medications Medication Instructions Recorded Confirmed Type Cetirizine HCl [Zyrtec] 20 mg PO BID 11/25/21 11/17/22 History Losartan [Cozaar] 50 mg PO DAILY 11/17/22 11/17/22 History amLODIPine [Norvasc] 5 mg PO DAILY 11/17/22 11/17/22 History metFORMIN HCL [Glucophage] 500 mg PO BID 11/17/22 11/17/22 History Allergies Allergy/AdvReac Type Severity Reaction Status Date / Time adhesive tape Allergy Rash/Hives Verified 11/17/22 11:21 bandaid Allergy Rash/Hives Uncoded 11/17/22 11:21 Physical Examination Osteopathic Statement: *. No significant issues noted on an osteopathic structural exam other than those noted in the History and Physical/Consult.
[~2022-11-25 09:07] MED LIST: LACTATED RINGERS 1,000 ML IV SCH; LIDOCAINE 1% (10MG/ML) FOR IV START INTRADERMA PRN; Pre Op ABX Message 1 EACH MISC MISCELLANE ONE
[2022-11-25] MEDS ORDERED: ONDANSETRON 4 MG/2 ML VIAL ONE (09:44)
[2022-11-25 09:54] VITALS: TEMP 96.8
[2022-11-25] MEDS ORDERED: BUPIVACAINE (PF) 0.5% 30 ML VIAL SQ ONE ×2 (09:56→10:08)
[2022-11-25] MEDS ORDERED: LIDOCAINE 2% INJ 20 MG/ML SQ ONE ×2 (09:57→10:08)
[2022-11-25] MEDS ORDERED: MIDAZOLAM 2 MG/2 ML VIAL ONE (10:01)
[2022-11-25] MEDS ORDERED: fentaNYL (PF) 50 MCG/ML 2 ML AMP ONE (10:01)
[2022-11-25] MEDS ORDERED: PROPOFOL 10 MG/ML 20 ML VIAL IV ONE (10:01)
[2022-11-25] MEDS ORDERED: DEXAMETHASONE SOD PHOSPHATE 4 MG/ML 1 ML VIAL IVP ONE (10:03)
[2022-11-25 10:07] LABS: Glucose,Whole Blood 106 mg/dL (70-110)
--- NOTE | 2022-11-25 10:33 | P.OP ---
Date of Procedure: 11/25/22 Preoperative Diagnosis: Left thumb trigger finger Postoperative Diagnosis: Left thumb trigger finger Procedure(s) Performed: Left thumb A1 anyi release Anesthesia: MAC Surgeon: Vincent Mar Shadowgraph Scale Operator #1: Cholo Brenner Estimated Blood Loss (ml): 0 Pathology: none sent Condition: stable Disposition: PACU Description of Procedure: This is a 52 year old female who presents today for a left thumb trigger finger A1 anyi release after having failed conservative treatment. Risks and benefits of surgery were discussed with the patient including bleeding, damage to surrounding tissue, infection, need for further surgery as well as risks of anesthesia including pulmonary embolism and even and the patient wished to proceed with surgical intervention. The patient was seen in the pre-operative area by myself. Consent and H&P were completed and updated. The correct extremity was marked in the pre-operative area by myself and all other questions were answered. Operative Narrative: The patient was brought to the operating room by the department of anesthesia. They remained on the portable stretcher and a rolling hand table was brought to the side of the operative extremity. Pre-operative time out was performed indicating the correct patient, procedure and laterality. All in the room agreed. Pre-operative antibiotics were given prior to skin incision. The patient was then drifted off to sleep by the department of anesthesia. MAC anesthesia was utilized and a 50:50 mixture of 1% Lidocaine and 0.5% bupivacaine was injected into the subcutaneous tissues of the palmar skin, 3 ccs total. A nonsterile tourniquet was then applied to the operative extremity and the operative upper extremity was then prepped and draped in normal sterile fashion. The operative extremity was the exsanguinated with an esmarch bandage and the tourniquet was inflated to 250mmHg. Windy incision was made at the base of the thumb overlying the A1 anyi. Blunt dissection was taken down to the level of the A1 anyi. Ragnell retractors were placed both radially and ulnarly to protect neurovascular bundles. Littler tenotomy scissors were then used to release the A1 anyi from proximal to distal under direct visualization. Proximal fascial attachments were released. The tendon was then taken through range of motion and no locking or catching was appreciated. The wound was then closed with interrupted 4-0 nylon sutures in a horizontal mattress fashion. Sterile dressing consisting of adaptic, 4x4s, webril, and an neftali wrap was applied. Tourniquet was let down and the hand was immediately well perfused. The patient was then woken by the department of anesthesia and transferred to PACU in stable condition. Sarahi JUAREZ was present to assist in major portions of the procedure. Vincent Mar D.O. Orthopedic Hand/Upper Extremity Surgeon
[2022-11-25 10:51] VITALS: RESP 18
[2022-11-25 11:21] VITALS: BP 130/78; PULSE 68
== END 2022-11-25 11:35 | disposition home or self-care (01) ==
LOC: OR 09:07
PROVIDERS: ATTEND Orthopaedic Surgery Hand Surgery
DX: M65.312 Trigger thumb, left thumb (principal); I10 Essential (primary) hypertension; E11.9 Type 2 diabetes mellitus without complications; E78.5 Hyperlipidemia, unspecified; Z79.84 Long term (current) use of oral hypoglycemic drugs; Z91.09 Other allergy status, other than to drugs and biological substances; Z79.899 Other long term (current) drug therapy
CPT/HCPCS: 26055; J2001; J2250; J1100; J2405; J3010; J2704; J0665

== ENCOUNTER → 2022-12-09 | Outpatient (CLI) | payer OTHER ==
[2022-12-10 05:23] LABS: Alternaria alternata IgE <0.10 kU/L; Aspergillus fumagatus IgE <0.10 kU/L; Birch IgE <0.10 kU/L; Cat Epith & Dander IgE <0.10 kU/L; Dermato. farinae IgE <0.10 kU/L; Dog Dander IgE <0.10 kU/L; Elm IgE <0.10 kU/L; Oak IgE <0.10 kU/L; Ragweed,Common IgE <0.10 kU/L
[2022-12-10 13:09] LABS: Bermuda Grass IgE <0.10 kU/L (<0.10); Meadow Fescue IgE <0.10 kU/L (<0.10); Meadow Fescue IgE Class CLASS 0; Pecan IgE <0.10 kU/L (<0.10); Pecan IgE Class CLASS 0
[2022-12-10 13:10] LABS: Clad herbarum IgE <0.10 kU/L (<0.10); Clad herbarum IgE Class CLASS 0; Meadow Grs (KY blue) IgE <0.10 kU/L (<0.10); Meadow Grs (KY blue) IgE Class CLASS 0; Penicillium notatum IgE Class CLASS 0; Timothy Grass IgE <0.10 kU/L (<0.10); Timothy Grass IgE Class CLASS 0; Willow Tree IgE <0.10 kU/L (<0.10); Willow Tree IgE Class CLASS 0
[2022-12-10 13:11] LABS: Beech IgE <0.10 kU/L (<0.10); Beech IgE Class CLASS 0; Cottonwood IgE <0.10 kU/L (<0.10); Lamb's Quarter IgE <0.10 kU/L (<0.10); Lamb's Quarter IgE Class CLASS 0; Sycamore(Mpl.Lf) IgE <0.10 kU/L (<0.10); Sycamore(Mpl.Lf) IgE Class CLASS 0
[2022-12-10 13:12] LABS: Goldenrod IgE <0.10 kU/L (<0.10); Goldenrod IgE Class CLASS 0
[2022-12-10 13:13] LABS: English Plantain IgE Class CLASS 0; Ragweed, Giant IgE <0.10 kU/L (<0.10); Ragweed, Giant IgE Class CLASS 0; Sheep Sorrel IgE <0.10 kU/L (<0.10); Sheep Sorrel IgE Class CLASS 0
== END | disposition home or self-care (01) ==
LOC: LABWHC1 15:40
PROVIDERS: ATTEND Internal Medicine
DX: J31.0 Chronic rhinitis (principal)
CPT/HCPCS: 36415; 86003

== ENCOUNTER → 2023-05-10 | Outpatient (CLI) | payer OTHER ==
--- NOTE | 2023-05-12 00:03 | MR ---
EXAMINATION TYPE: MR knee LT wo con DATE OF EXAM: 05/10/2023 COMPARISON: Outside left knee x-ray May 07, 2023 HISTORY: Lt knee pain and swelling x3 weeks TECHNIQUE: Multiplanar, multisequence images of the knee is performed without IV contrast. FINDINGS: Slightly suboptimal study due to motion artifact MEDIAL MENISCUS: Increased signal throughout the medial meniscus particularly central body and automotive worker foreman ior horn does not definitively extend to articular surface. LATERAL MENISCUS: Anterior and posterior horns are intact without tear. CRUCIATE LIGAMENTS: The anterior and posterior cruciate ligaments are intact and unremarkable. COLLATERAL LIGAMENTS: The medial collateral ligament and lateral collateral ligament complex are inta ct and unremarkable. EXTENSOR MECHANISM: Visualized quadriceps and patellar tendons are intact. EFFUSION: Small size suprapatellar joint effusion. POPLITEAL CYST: Tiny popliteal/varghese cyst. TRICOMPARTMENT SPACES: Tricompartment joint space loss and mild to moderate spurring. Most prominent joint space loss as well as in the patellofemoral compartment. CARTILAGE: Significant chondromalacia patella with areas of full-thickness cartilaginous loss overlyi ng the posterior patellar pole identified. BONE MARROW SIGNAL: Heterogeneity consistent with red marrow reconversion. No suspicious focal increa sed T2 signal or osseous edema. OTHER: Mild subcutaneous edema anterior to the patellar tendon. There is medial subcutaneous varicose vein incidentally noted. IMPRESSION: 1. At least an intrasubstance tear through the posterior horn of the medial meniscus. 2. Tricompartment degenerative changes most prominent involving the patellofemoral compartment as det nahomy above. 3. Small suprapatellar joint effusion. 4. Small to tiny size popliteal cyst.
== END | disposition home or self-care (01) ==
LOC: RADMRIMAIN 18:52
PROVIDERS: ATTEND Orthopaedic Surgery
DX: M17.12 Unilateral primary osteoarthritis, left knee (principal); M25.462 Effusion, left knee; M71.22 Synovial cyst of popliteal space [Baker], left knee; M23.322 Other meniscus derangements, posterior horn of medial meniscus, left knee

== ENCOUNTER → 2023-05-31 | Outpatient (CLI) | payer OTHER ==
[2023-05-31 18:59] LABS: Basophils # (A) 0 X 10*3/uL (0.00-0.10); Basophils % (A) 0 %; Eosinophils # (A) 0 X 10*3/uL (0.04-0.35); Eosinophils % (A) 0 %; HCT 43.2 % (37.2-46.3); HGB 14.4 g/dL (12.0-15.0); Lymphocytes # (A) 1.31 X 10*3/uL (0.90-5.00); Lymphocytes % (A) 33.9 %; MCH 28.8 pg (27.0-32.0); MCHC 33.3 g/dL (32.0-37.0); MCV 86.4 FL (80.0-97.0); Mean Platelet Volume 11.6 FL (9.5-12.2); Monocytes # (A) 0.31 X 10*3/uL (0.20-1.00); NRBC Per 100 WBC 0 X 10*3/uL (0.00-0.01); Neutrophils # (A) 2.23 X 10*3/uL (1.80-7.70); Neutrophils % (A) 57.8 %; Platelet Count 109 X 10*3/uL (140-440); RDW 13.4 % (11.5-14.5); WBC 3.86 X 10*3/uL (4.50-10.00)
[2023-05-31 20:38] LABS: Potassium 4.5 mmol/L (3.5-5.5)
== END | disposition home or self-care (01) ==
LOC: LABPAT 13:51
PROVIDERS: ATTEND Orthopaedic Surgery
DX: Z01.812 Encounter for preprocedural laboratory examination (principal); M23.92 Unspecified internal derangement of left knee; R94.31 Abnormal electrocardiogram [ECG] [EKG]
CPT/HCPCS: 80051; 85025; 93005

== ENCOUNTER 2023-06-10 11:02 | Day surgery (SDC) | payer OTHER ==
--- NOTE | 2023-06-09 21:28 | HP ---
HISTORY AND PHYSICAL DATE OF SURGERY: 06/10/2023. HISTORY OF PRESENT ILLNESS: Paola Baig is a 53-year-old patient, who was seen with progressive left knee pain. We discussed options regarding treatment. She elected to proceed with left knee arthroscopy. Consent was obtained. PAST MEDICAL HISTORY: Hypertension, hyperlipidemia, [id number] diabetes. PAST SURGICAL HISTORY: Carpal tunnel surgery, hysterectomy. DAILY MEDICATIONS: 1. Amlodipine. 2. Losartan. 3. Metformin. 4. Aleve. ALLERGIES: None. SOCIAL HISTORY: She denies tobacco use. PHYSICAL EVALUATION OF THE LEFT KNEE: Range of motion is 0 to 130 degrees. Mild effusion. Tenderness along the medial and lateral joint lines. Positive medial Leena's. Positive lateral Leena's. Ligaments stable. Hip rotation without pain. Distal neurovascular exam is intact. IMAGING STUDIES: Radiographs of the left knee revealed mild osteoarthritis and effusion. IMPRESSION: Internal derangement of left knee with medial meniscal tear, hypertension, hyperlipidemia, [id number] diabetes. PLAN: Left knee arthroscopy with partial medial meniscectomy and debridement. MMODL / IJN: [id number] /
[~2023-06-10 11:02] MED LIST changes: -LACTATED RINGERS 1,000 ML IV SCH; +MIDAZOLAM 2 MG/2 ML VIAL IV PRN; -Pre Op ABX Message 1 EACH MISC MISCELLANE ONE
[2023-06-10 12:12] LABS: Glucose,Whole Blood 95 mg/dL (70-110)
[2023-06-10] MEDS: ONDANSETRON 4 MG/2 ML VIAL IVP ONE (12:14)
[2023-06-10] MEDS: LACTATED RINGERS 1,000 ML IV SCH (12:14)
[2023-06-10] MEDS: DEXAMETHASONE SOD PHOSPHATE 4 MG/ML 1 ML VIAL IV ONE (12:15)
[2023-06-10] MEDS: BUPIVACAINE (PF) 0.25% 30 ML VIAL SQ ONE ×2 (12:51→13:43)
[2023-06-10] MEDS ORDERED: LIDOCAINE 1% INJ 10MG/ML (20 ML MDV) ONE (13:02)
[2023-06-10] MEDS ORDERED: fentaNYL (PF) 50 MCG/ML 2 ML AMP ONE (13:02)
[2023-06-10] MEDS ORDERED: PROPOFOL 10 MG/ML 20 ML VIAL IV ONE (13:02)
[2023-06-10] MEDS ORDERED: MIDAZOLAM 2 MG/2 ML VIAL ONE (13:02)
[2023-06-10] MEDS ORDERED: ALBUTEROL HFA INHALER INHALATION ONE (13:02)
[2023-06-10] MEDS ORDERED: SUCCINYLCHOLINE CHLORIDE 200 MG/10 ML VIAL IV ONE (13:02)
--- NOTE | 2023-06-10 14:02 | P.OP ---
Date of Procedure: 06/10/23 Preoperative Diagnosis: Internal derangement left knee Postoperative Diagnosis: 1. Tear medial and lateral meniscus left knee 2. Grade IV chondromalacia medial femoral condyle left knee 3. Reactive synovitis medial, lateral and suprapatellar compartments left knee 4. Grade II/III chondromalacia patella left knee Procedure(s) Performed: 1. Arthroscopic partial medial and lateral meniscectomy left knee 2. Arthroscopic microfracture medial femoral condyle left knee 3. Arthroscopic partial synovectomy medial, lateral and suprapatellar compartments left knee 4. Arthroscopic chondroplasty patella left knee Anesthesia: CHARLEENA, local Surgeon: Jon Dejesus Estimated Blood Loss (ml): 6 Pathology: none sent Condition: stable Disposition: PACU Indications for Procedure: 53-year-old patient seen with progressive left knee pain. After having treatment options discussed, she elected to proceed with arthroscopy. Operative Findings: See description of procedure Description of Procedure: Patient was taken to the operative suite. Patient underwent a general anesthetic by the department of anesthesia. Patient was given preoperative antibiotics. The left lower extremity was placed in a well-padded arthroscopic leg gonzales. The left leg was prepped and draped in the normal sterile orthopedic fashion. A lateral parapatellar and suprapatellar incision was made. Trochars were inserted. Arthroscopy was initiated. Suprapatellar pouch revealed diffuse thick reactive synovitis. The patellofemoral joint appeared to articular congruently. There was grade II/III chondromalacia of the patella with osteochondral tears. The scope was guided into the medial gutter. No loose bodies or plica were identified. The scope was then guided into the medial compartment. A medial parapatellar incision was made. Trocar inserted followed by probe. There was a complex tear involving the posterior horn of the medial meniscus. There were grade III/IV chondromalacia changes medial femoral condyle with osteochondral flap tears. There was thick reactive synovitis anteriorly. I performed a partial medial meniscectomy getting down to stable meniscal tissue. I performed a chondroplasty of the medial femoral condyle getting down to stable osteochondral tissue. I performed a partial synovectomy decompressing the reactive synovitis. I did note an area of grade IV chondromalacia/exposed bone measuring about a centimeter involving the weightbearing surface of the medial femoral condyle. I introduced a microfracture awl and performed a microfracture to that area penetrating the bone with resultant bleeding at the microfracture site. The residual meniscus was probed and was found to be stable. The residual osteochondral surface was stable. There was good decompression of the synovitis. Scope and probe were then guided into the intercondylar notch. Cruciates were identified, probed and found to be stable. The scope and probe were then guided into lateral compartment. There was a radial tear involving the mid body of the lateral meniscus. There was also a radial tear involving the anterior horn of the medial meniscus. There were grade I/II chondromalacia changes of the lateral compartment without tears. There was some reactive synovitis anteriorly. I performed a partial lateral meniscectomy getting down to stable meniscal tissue. I performed a partial synovectomy decompressing the reactive synovitis. The residual meniscus was probed and was found to be stable. There was good decompression of the synovitis. The scope was in guided back into the suprapatellar compartment. I introduced a motorized shaver into the suprapatellar compartment. I debrided some piecemeal fragments of meniscus that I encountered. I performed a chondroplasty of the patella getting down to stable osteochondral tissue. I performed a partial synovectomy. The shaver was removed. The residual osteochondral surface of the patella was stable. There was good decompression of the synovitis. I now took one more look around the entire knee, no residual debris. Instruments were now removed from the joint. The joint was infiltrated with .25% Marcaine. Steri-Strips were applied to the portal sites. Sterile dressings were applied. The patient was placed into a KESHAV hose. No tourniquet was utilized. The patient was awakened, transferred to a bed and taken to recovery stable satisfactory condition.
[2023-06-10] MEDS: LACTATED RINGERS 1,000 ML IV ONE (14:13)
[2023-06-10 14:24] LABS: Glucose,Whole Blood 124 mg/dL (70-110)
[2023-06-10 14:25] VITALS: TEMP 97
[2023-06-10] MEDS: HYDROmorphone 0.5 MG/0.5 ML SYRINGE IVP PRN (14:46)
[2023-06-10 16:02] VITALS: PULSE 74
[2023-06-10] MEDS ORDERED: HYDROcodone/APAP 5-325MG 1 EACH TAB ONE (16:10)
[2023-06-10] MEDS: HYDROcodone/APAP 5-325MG 1 EACH TAB PO ONE (16:14)
[2023-06-10 16:33] VITALS: BP 133/80; RESP 20
== END 2023-06-10 16:45 | disposition home or self-care (01) ==
LOC: OR 11:02
PROVIDERS: ATTEND Orthopaedic Surgery
DX: S83.282A Other tear of lateral meniscus, current injury, left knee, initial encounter (principal); M22.42 Chondromalacia patellae, left knee; I10 Essential (primary) hypertension; E78.5 Hyperlipidemia, unspecified; E11.9 Type 2 diabetes mellitus without complications; Z79.84 Long term (current) use of oral hypoglycemic drugs; Z98.890 Other specified postprocedural states; Z79.899 Other long term (current) drug therapy; X58.XXXA Exposure to other specified factors, initial encounter
CPT/HCPCS: 29880; 29879; J2250; J0330; J1100; J0690; J2405; J2001; J3010; J2704; J1170; J0665

== ENCOUNTER → 2023-11-10 | Outpatient (CLI) | payer OTHER ==
--- NOTE | 2023-11-10 16:40 | US ---
EXAMINATION TYPE: US venous doppler duplex LE LT DATE OF EXAM: 11/10/2023 4:31 PM COMPARISON: NONE CLINICAL INDICATION: Female, 53 years old with history of M79.662 PAIN IN LEFT LOWER LEG; Left leg pa in SIDE PERFORMED: Left TECHNIQUE: The lower extremity deep venous system is examined utilizing real time linear array sonog bibiana with graded compression, doppler sonography and color-flow sonography. VESSELS IMAGED: Common Femoral Vein Deep Femoral Vein Greater Saphenous Vein * Femoral Vein Popliteal Vein Small Saphenous Vein * Proximal Calf Veins (* superficial vessels) Left Leg: Negative for DVT IMPRESSION: Grayscale, color doppler, spectral doppler imaging performed of the deep veins of the lo wer extremities. There is normal flow, compressibility, vascular waveforms.
== END | disposition home or self-care (01) ==
LOC: RADUSWWP 16:15
PROVIDERS: ATTEND Internal Medicine
DX: M79.662 Pain in left lower leg (principal)

== ENCOUNTER → 2023-11-18 | Outpatient (CLI) | payer OTHER ==
--- NOTE | 2023-12-14 08:53 | MM ---
Reason for Exam: Screening (asymptomatic). Last screening mammogram was performed 12 month(s) ago. Patient History: Menarche at age 11. Patient has no children. Hysterectomy at age 36. Postmenopausal. Patient used Hormonal Contraceptives for 5 years. Risk Values: Brandie 5 year model risk: 1.3%. NCI Lifetime model risk: 9.3%. Prior Study Comparison: 06/14/2020 Bilateral Screening Mammogram, [facility]. 09/26/2021 Bilateral MG screening mammo w CAD, [facility]. 11/16/2022 Bilateral MG screening mammo w CAD, [facility]. Tissue Density: There are scattered areas of fibroglandular density. Findings: Analyzed By CAD. Right breast: There is no suspicious group of microcalcifications or new suspicious mass. Left breast: There is no suspicious group of microcalcifications or new suspicious mass. Overall Assessment: Negative, BI-RAD 1 Management: Screening Mammogram of both breasts in [address] [facility] will attempt to contact patient to return for supplemental views and ultrasound if indicated. Patient should continue monthly self-breast exams. A clinical breast exam by your physician is recommended on an annual basis. This exam should not preclude additional follow-up of suspicious palpable abnormalities. Note on Brandie scores and lifetime risk: 1. A Brandie score greater than 3% is considered moderate risk. If this is the case, consider specialist referral to assess eligibility for a risk reducing agent. 2. If overall lifetime risk for the development of breast cancer is 20% or higher, the patient may qualify for future screening with alternating mammogram and breast MRI. Electronically signed and approved by: Gregg Zarco DO
== END | disposition home or self-care (01) ==
LOC: RADMAMWWP 11-16 16:30
PROVIDERS: ATTEND Internal Medicine
DX: Z13.31 Encounter for screening for depression
CPT/HCPCS: 77067

== ENCOUNTER → 2024-07-12 | Outpatient (CLI) | payer OTHER ==
[2024-07-12 18:29] LABS: BUN/Creat Ratio 16.75 Ratio (12.00-20.00); Blood Urea Nitrogen 13.4 mg/dL (9.0-27.0); Glucose 95 mg/dL (70-110)
[2024-07-12 18:30] LABS: Calcium 9.4 mg/dL (8.7-10.3); Carbon Dioxide 23.9 mmol/L (21.6-31.8); Chloride 107 mmol/L (96-109); Potassium 4.1 mmol/L (3.5-5.5); Sodium 142 mmol/L (135-145)
[2024-07-12 18:50] LABS: INR 1.06 sec (0.93-1.11); Prothrombin Time 11.8 sec (9.9-11.9)
[2024-07-12 19:12] LABS: Basophils # (A) 0 X 10*3/uL (0.00-0.10); Basophils % (A) 0 %; Eosinophils # (A) 0 X 10*3/uL (0.04-0.35); Eosinophils % (A) 0 %; HCT 38.3 % (37.2-46.3); HGB 12.9 g/dL (12.0-15.0); Lymphocytes # (A) 1.04 X 10*3/uL (0.90-5.00); Lymphocytes % (A) 33.9 %; MCH 29.3 pg (27.0-32.0); MCHC 33.7 g/dL (32.0-37.0); Mean Platelet Volume 11.9 FL (9.5-12.2); Monocytes # (A) 0.26 X 10*3/uL (0.20-1.00); Monocytes % (A) 8.5 %; NRBC Per 100 WBC 0 X 10*3/uL (0.00-0.01); Neutrophils # (A) 1.74 X 10*3/uL (1.80-7.70); Neutrophils % (A) 56.6 %; Platelet Count 100 X 10*3/uL (140-440); RBC Morphology Normal (Normal); RDW 14.4 % (11.5-14.5); WBC 3.07 X 10*3/uL (4.50-10.00)
== END | disposition home or self-care (01) ==
LOC: LABPAT 15:28
PROVIDERS: ATTEND Orthopaedic Surgery
DX: Z01.812 Encounter for preprocedural laboratory examination (principal); Z22.322 Carrier or suspected carrier of Methicillin resistant Staphylococcus aureus; M17.12 Unilateral primary osteoarthritis, left knee
CPT/HCPCS: 80048; 85025; 85610; 87070; 93005

== ENCOUNTER 2024-08-07 10:41 | Day surgery (SDC) | payer OTHER ==
--- NOTE | 2024-08-07 05:26 | HP ---
HISTORY AND PHYSICAL DATE OF SURGERY: 08/07/2024 Paola Baig is a 54-year-old patient seen with symptomatic left knee osteoarthritis. After having treatment options discussed, she elected to proceed with left total knee arthroplasty. Consent regarding the procedure was obtained. PAST MEDICAL HISTORY: Hypertension, kzs-ntunmag-zexxyaozo diabetes. PAST SURGICAL HISTORY: Carpal tunnel release, hysterectomy, knee arthroscopy. DAILY MEDICATIONS: 1. Amlodipine. 2. Losartan. 3. Metformin. 4. Celebrex. 5. Vitamins. ALLERGIES: None reported. SOCIAL HISTORY: She denies tobacco use. PHYSICAL EVALUATION OF THE LEFT KNEE: Range of motion is -2/3 to 115 degrees. Mild effusion. Tenderness, medial joint line. Crepitus, medial patellofemoral compartments with range of motion. There is pain with patellofemoral compression. Ligaments stable. Hip rotation without pain. Distal neurovascular exam is intact. IMAGING: Radiographs of the left knee revealed severe osteoarthritic changes. IMPRESSION: 1. Left knee osteoarthritis. 2. Hypertension. 3. Ylj-tvmgsft-dxdfkmoou diabetes. PLAN: Left total knee arthroplasty. MMODL / IJN: [id number] /
[~2024-08-07 10:41] MED LIST changes: -LIDOCAINE 1% (10MG/ML) FOR IV START INTRADERMA PRN; -MIDAZOLAM 2 MG/2 ML VIAL IV PRN; +TRANEXAMIC 1,000 MG/100ML-NACL 1,000 MG in SALINE 1 100ML.BAG IVPB PRN
[2024-08-07] MEDS: MELOXICAM 7.5 MG TAB PO PRN (11:04)
[2024-08-07] MEDS: ACETAMINOPHEN TAB 500 MG TAB PO PRN (11:04)
[2024-08-07] MEDS: LACTATED RINGERS 1,000 ML IV ONE ×2 (11:12→14:39)
[2024-08-07 11:23] LABS: Glucose,Whole Blood 107 mg/dL (70-110)
[2024-08-07] MEDS: LACTATED RINGERS 1,000 ML IV SCH ×2 (11:28→16:22)
[2024-08-07] MEDS: ONDANSETRON 4 MG/2 ML VIAL IVP ONE (11:28)
[2024-08-07] MEDS: DEXAMETHASONE SOD PHOSPHATE 4 MG/ML 1 ML VIAL IV ONE (11:28)
[2024-08-07] MEDS: MIDAZOLAM 2 MG/2 ML VIAL IV ONE (12:03)
[2024-08-07] MEDS ORDERED: ROCURONIUM 10 MG/ML (5 ML VIAL) IV ONE (12:55)
[2024-08-07] MEDS ORDERED: TRANEXAMIC 1,000 MG/100ML-NACL PREMIX BAG ONE (12:55)
[2024-08-07] MEDS ORDERED: LIDOCAINE 1% INJ 10MG/ML (20 ML MDV) ONE (12:55)
[2024-08-07] MEDS ORDERED: fentaNYL (PF) 50 MCG/ML 2 ML AMP ONE (12:55)
[2024-08-07] MEDS ORDERED: DEXAMETHASONE SOD PHOSPHATE 4 MG/ML 1 ML VIAL ONE (12:55)
[2024-08-07] MEDS ORDERED: GLYCOPYRROLATE 0.2 MG/ML 2 ML VIAL ONE (12:55)
[2024-08-07] MEDS ORDERED: ROPIVACAINE 5 MG/ML 30 ML VIAL ONE (12:55)
[2024-08-07] MEDS ORDERED: NEOSTIGMINE 1 MG/ML 10 ML VIAL ONE (12:55)
[2024-08-07] MEDS ORDERED: MIDAZOLAM 2 MG/2 ML VIAL ONE (12:55)
[2024-08-07] MEDS ORDERED: SUCCINYLCHOLINE CHLORIDE 200 MG/10 ML VIAL IV ONE (12:55)
[2024-08-07] MEDS ORDERED: PROPOFOL 10 MG/ML 20 ML VIAL IV ONE (12:55)
[2024-08-07] MEDS: ceFAZolin 2 GM in DEXTROSE 5% IN WATER 50 ML IVPB PRN (13:00)
[2024-08-07] MEDS: ceFAZolin 1,000 MG in SODIUM CHLORIDE 0.9% 1,000 ML IRRIGATION ONE (13:27)
--- NOTE | 2024-08-07 14:17 | P.ANPRN ---
Procedure Note - Anesthesia - Nerve Block Performed Left Adductor Canal Infusion Time Out Performed: Yes Date of Procedure: 08/07/24 Procedure Start Time: 11:43 Procedure Stop Time: 11:54 Location of Patient: PreOp Indication: Acute Post-Operative Pain, Requested by Surgeon Sedation Type: Sedate with meaningful contact maintained Preparation: Sterile Prep Position: Supine Catheter: Indwelling Needle Types: Pajunk Needle Gauge: 21 Ultrasound used to visualize needle placement: Yes Ultrasound used to observe medication spread: Yes Blood Aspirated: No Pain Paresthesia on Injection Noted: No Resistance on Injection: Normal Image Stored and Saved: Yes Events: Uneventful and Well Tolerated (Ropivacaine 0.5% 20 cc plus dexamethasone 4 mg)
--- NOTE | 2024-08-07 14:19 | P.ANPRN ---
Procedure Note - Anesthesia - Nerve Block Performed Left iPack Single Time Out Performed: Yes Date of Procedure: 08/07/24 Procedure Start Time: 11:55 Procedure Stop Time: 11:57 Location of Patient: PreOp Indication: Acute Post-Operative Pain, Requested by Surgeon Sedation Type: Sedate with meaningful contact maintained Preparation: Sterile Prep Position: Supine Needle Types: Pajunk Needle Gauge: 21 Ultrasound used to visualize needle placement: Yes Ultrasound used to observe medication spread: Yes Blood Aspirated: No Pain Paresthesia on Injection Noted: No Resistance on Injection: Normal Image Stored and Saved: Yes Events: Uneventful and Well Tolerated (Ropivacaine 0.5% 20 cc plus dexamethasone 4 mg)
[2024-08-07] MEDS ORDERED: NALOXONE 0.4 MG/ML 1 ML VIAL IV PRN (14:45)
[2024-08-07] MEDS ORDERED: ONDANSETRON 4 MG/2 ML VIAL IVP PRN (14:45)
[2024-08-07] MEDS ORDERED: HYDROmorphone 0.5 MG/0.5 ML SYRINGE IVP PRN ×2 (14:45)
--- NOTE | 2024-08-07 14:45 | P.OP ---
Date of Procedure: 08/07/24 Preoperative Diagnosis: Left knee osteoarthritis Postoperative Diagnosis: Left knee osteoarthritis Procedure(s) Performed: Left total knee arthroplasty Implants: 1. DePuy attune size 4 left cruciate retaining cemented femur 2. DePuy attune size 4 fixed-bearing cemented tibial baseplate 3. DePuy attune size 4 fixed-bearing cruciate retaining 8 mm polyethylene tibial insert 4. DePuy attune 35 mm all polyethylene cemented patella Anesthesia: regional (Adductor canal catheter, iPAQ block), spinal Surgeon: Jon Dejesus Meat Pickler #1: Dominick Bales Estimated Blood Loss (ml): 40 Pathology: none sent Condition: stable Disposition: PACU Indications for Procedure: 54-year-old patient seen with symptomatic left knee osteoarthritis. After having treatment options discussed, she elected to proceed with left total knee arthroplasty. Operative Findings: See description of procedure Description of Procedure: Patient was taken to the operative suite after having an adductor canal catheter placed by the department of anesthesia. Patient underwent a spinal anesthetic by the department of anesthesia. Patient was given preoperative IV intake antibiotics and TXA. A well-padded tourniquet was placed about the left lower extremity. The lower extremity was then prepped and draped in the normal sterile orthopedic fashion. The extremity was elevated, a tourniquet was insufflated to 300. A standard anterior incision was made sharply through skin. Dissection was taken down through the subcutaneous soft tissues down to the extensor mechanism. A medial arthrotomy was performed, patella was everted and knee was flexed. There was advanced osteoarthritis noted. I introduced my distal intramedullary femoral drill. I then introduced the distal femoral cutting jig. Johnson JUAREZ secured the cutting jig with 2 pins. I held retractors in position while Johnson JUAREZ performed the distal femoral resection through the guide area we now removed her distal femoral cutting guide. We now placed our 4-in-1 femoral cutting block and positioned and it was secured with 2 pins by Johnson JUAREZ while I held the block in position. The distal femoral finishing was now completed. A proximal tibial cutting guide was positioned. I held the guide in the appropriate position with both hands well Johnson JUAREZ inserted stabilizing pins into the guide. Proximal tibial cut was made. We now placed a trial femoral component into position, along with an appropriate size tibial tray and insert. We now took the knee through range of motion and had full extension good flexion and good overall soft tissue balance noted. The patella was everted and stabilized with 2 towel clips held by Johnson JUAREZ while I performed a flush with patellar quad tendon utilizing a fresh sawblade. We templated the patella, appropriate drill holes were made. An appropriate trial patella was positioned, knee was taken through full range of motion with the patella tracking very nicely. The trial patella was removed. Drill holes were made through the femoral component. All trial components were removed after marking off the appropriate rotation of the tibia. Retractors were now positioned along the proximal tibia. An appropriate keel punch was made with the appropriate size tibial guide by myself on Johnson JUAREZ assisted by holding retractors. At this point appropriate size implants were chosen and opened. The joint was irrigated copiously with pulse lavage mechanical irrigation. The wound was irrigated with pulse lavage mechanical irrigation. We mixed antibiotic methylmethacrylate. We placed the knee into flexion. We placed multiple retractors assisted by Johnson JUAREZ to expose the proximal tibia. Once the methyl methacrylate was ready, the tibial component was cemented into place removing any excess methylmethacrylate form by both myself and Johnson JUAREZ. The femoral component was cemented into place removing the removing any excess methylmethacrylate performed by both myself and Johnson JUAREZ. We then inserted the appropriate size polyethylene tibial insert. We made sure that it was locked into position. We took the knee into full extension, and then back in a flexion making sure we had removed any excess methylmethacrylate. The patellar component was then cemented down and secured with clamp. Excess methylmethacrylate removed. We kept the knee in full extension, patellar clamp in position until methylmethacrylate had hardened. Once it had hardened the patellar clamp was removed. The knee was taken through full range of motion. The patella tracked nicely. There was good soft tissue balancing. The tourniquet was now released. Additional hemostasis was achieved via electrocautery. A second gram of TXA was given. The wound again was irrigated with pulse lavage mechanical irrigation. The extensor mechanism was repaired with Ethibond suture. We checked the repair with range of motion and it was stable. The subcutaneous soft tissues were repaired with Vicryl in layers. The skin was approximated with pernio/Dermabond. Sterile dressings were applied followed by loose web roll and Huseyin bandage. The patient was transferred to a bed, and taken to recovery in stable and satisfactory condition. Johnson JUAREZ assisted with this complex procedure.
[2024-08-07] MEDS: HYDROmorphone 0.5 MG/0.5 ML SYRINGE IVP PRN (15:12)
--- NOTE | 2024-08-07 15:22 | XR ---
EXAMINATION TYPE: XR knee limited 2 views LT DATE OF EXAM: 08/07/2024 3:10 PM COMPARISON: None CLINICAL INDICATION: Female, 54 years old with history of Evaluation for Postop abnormality and align ment; PHH, pain FINDINGS: Images show placement of left total knee arthroplasty. Both distal femoral and proximal t ibial components of the prosthesis are well seated without periprosthetic fracture. Alignment grossly anatomic. Anterior soft tissue swelling with soft tissue air as well as intra-articular air related to recent operation. Anterior midline skin matthieu. IMPRESSION: Uncomplicated postoperative appearance left total knee arthroplasty. [facility], Workstation: [id number], 08/07/2024 3:19 PM
[2024-08-07] MEDS: ROPIVACAINE 1,100 MG, SODIUM CHLORIDE 0.9% 500 ML 330 ML, EMPTY PAIN BALL 1 EACH MISCELLANE PRN (15:23)
[2024-08-07 15:36] LABS: Glucose,Whole Blood 140 mg/dL (70-110)
[2024-08-07] MEDS: HYDROmorphone 2 MG/ML 1 ML SYRINGE IVP PRN (16:38)
[2024-08-07 16:48] LABS: Glucose,Whole Blood 144 mg/dL (70-110)
[2024-08-07 20:07] LABS: Glucose,Whole Blood 133 mg/dL (70-110)
[2024-08-07] MEDS: SENNOSIDES-DOCUSATE SODIUM 1 EACH TAB PO SCH (20:25)
[2024-08-07] MEDS: ASPIRIN 81 MG PO SCH (20:25)
[2024-08-07] MEDS: ceFAZolin 2 GM in DEXTROSE 5% IN WATER 50 ML IVPB SCH (20:25)
[2024-08-07] MEDS: metFORMIN 500 MG TAB PO SCH (20:25)
[2024-08-07] MEDS: PREGABALIN 75 MG CAP PO SCH (20:25)
[2024-08-07] MEDS: HYDROcodone/APAP 5-325MG 1 EACH TAB PO PRN (20:59)
[2024-08-08 06:07] LABS: Glucose,Whole Blood 118 mg/dL (70-110)
--- NOTE | 2024-08-08 07:12 | P.PN ---
Progress Note - Text Progress Note Date: 08/08/24 (886) Anesthesiology Postop day 1 status post total knee arthroplasty with adductor canal catheter. Patient doing well. VAS 2 out of 10. Gross strength intact in lower extremity. Afebrile. Denies alterations in sensorium. Catheter site intact. Heart regular rate Lungs nonlabored Abdomen nondistended Assessment: Postop day 1 status post total knee arthroplasty with adductor canal catheter Plan: 1.All questions answered. Maintain catheter 2 more days with patient removal at home. Instructions to be given at discharge. 2.This note was dictated using [employer]oFold software. Please be advised there is a potential for misspellings or errors in professor of oceanography.
[2024-08-08 08:07] LABS: Basophils # (A) 0 X 10*3/uL (0.00-0.10); Basophils % (A) 0 %; Eosinophils # (A) 0 X 10*3/uL (0.04-0.35); Eosinophils % (A) 0 %; HCT 39.1 % (37.2-46.3); HGB 12.8 g/dL (12.0-15.0); Lymphocytes # (A) 0.48 X 10*3/uL (0.90-5.00); Lymphocytes % (A) 7.9 %; MCH 28.9 pg (27.0-32.0); MCHC 32.7 g/dL (32.0-37.0); MCV 88.3 FL (80.0-97.0); Mean Platelet Volume 12.2 FL (9.5-12.2); Monocytes # (A) 0.21 X 10*3/uL (0.20-1.00); Monocytes % (A) 3.5 %; NRBC Per 100 WBC 0 X 10*3/uL (0.00-0.01); Neutrophils # (A) 5.34 X 10*3/uL (1.80-7.70); Neutrophils % (A) 88.1 %; Platelet Count 107 X 10*3/uL (140-440); RBC 4.43 X 10*6/uL (4.10-5.20); RDW 13.7 % (11.5-14.5); WBC 6.06 X 10*3/uL (4.50-10.00)
[2024-08-08] MEDS: HYDROcodone/APAP 7.5-325MG 1 EACH TAB PO PRN (08:07)
[2024-08-08] MEDS: amLODIPine 5 MG TAB PO SCH (08:08)
[2024-08-08] MEDS: MULTIVITAMINS, THERA 1 EACH TAB PO SCH (08:08)
[2024-08-08] MEDS: LOSARTAN 50 MG TAB PO SCH (08:08)
[2024-08-08] MEDS: LORATADINE 10 MG TAB PO SCH (08:08)
[2024-08-08] MEDS: CHOLECALCIFEROL 25 MCG (1000 IU) TABLET PO SCH (08:08)
[2024-08-08] MEDS: buPROPion XL 300 MG TAB.ER.24H PO SCH (08:08)
[2024-08-08] MEDS: ZINC SULFATE 220 MG CAP PO SCH (08:08)
[2024-08-08 08:19] VITALS: BP 129/65; PULSE 72; RESP 16; TEMP 97.8
[2024-08-08] MEDS ORDERED: HYDROcodone/APAP 7.5-325MG 1 EACH TAB PO PRN (09:57)
--- NOTE | 2024-08-08 09:59 | P.PN ---
Subjective Progress Note Date: 08/08/24 Principal diagnosis: Status post left total knee arthroplasty Patient examined today at bedside, she is up resting in her hospital chair. Discussion with physical therapy, she did very well. She has been dealing with a little bit increase in pain today. She is urinating with no issues. She denies any headaches, lightheadedness, chest pain or shortness of breath Objective - Vital Signs Vital signs: Vital Signs Temp 97.8 F 08/08/24 07:05 Pulse 72 08/08/24 07:05 Resp 16 08/08/24 07:05 BP 129/65 08/08/24 07:05 Pulse Ox 93 L 08/08/24 07:05 FiO2 Intake & Output 08/07/24 08/08/24 08/08/24 18:59 06:59 18:59 Intake Total 1401 2190 Output Total 40 Balance 1361 2190 Weight 104.1 kg Intake: IV 1401 Oral 2190 Output: Estimated Blood Loss 40 Other: Voiding Method Toilet # Voids 1 3 1 - Exam Left lower extremity: Incision is clean, dry, and intact. The matthieu is in good condition. There is minimal soft tissue swelling and ecchymosis surrounding the medial and lateral aspects of the incision. Calf is soft, no tenderness with palpation. Plantar flexion, dorsiflexion, EHL, FHL are intact. Sensory exam to light touch throughout the extremity is intact, dorsal pedis pulses 2+. - Labs CBC & Chem 7: 08/08/24 03:44 Labs: Abnormal Lab Results - Last 24 Hours (Table) 08/07/24 08/07/24 08/07/24 Range/Units 15:33 16:47 20:05 Plt Count (140-440) X 10*3/uL Lymphocytes # (0.90-5.00) X 10*3/uL Eosinophils # (0.04-0.35) X 10*3/uL POC Glucose (mg/dL) 140 H 144 H 133 H (70-110) mg/dL 08/08/24 08/08/24 Range/Units 03:44 06:06 Plt Count 107 L (140-440) X 10*3/uL Lymphocytes # 0.48 L (0.90-5.00) X 10*3/uL Eosinophils # 0 L (0.04-0.35) X 10*3/uL POC Glucose (mg/dL) 118 H (70-110) mg/dL Assessment and Plan Assessment: Postoperative day #1 status post left total knee arthroplasty Plan: Pain control, will adjust [place] dose to every 4 hours as needed. Continue stool softeners DVT prophylaxis, aspirin 81 mg twice a day Wound care instructions were discussed, this to include bandaging, icing and elevating along with showering Home PT/nursing after discharge Medical recommendations appreciated Encourage incentive spirometer Discharge planning: Plan for discharge home later this afternoon Time with Patient: Less than 30
--- NOTE | 2024-08-08 10:03 | P.DS ---
Providers Date of admission: 08/07/2024 Expected date of discharge: 08/08/24 Attending physician: Jon Dejesus Consults: 08/07/24 14:45 Consult Physician Routine Consulting Provider: Tarik Briscoe Consult Reason/Comments: Medical management Do you want consulting provider notified?: Yes Primary care physician: Niko Pichardo Hospital Course: Date of admission: 08/07/2024 Date of discharge: 08/08/2024 Admission diagnosis: Status post left total knee arthroplasty Discharge diagnosis: Same Attending physician: Dr. Dejesus Surgical procedures: Left total knee arthroplasty Brief history: Patient is a 54-year-old female with a history of progressive primary left knee osteoarthritis. At this point patient has failed conservative treatment measures and has opted to proceed with a elective left total knee arthroplasty. Hospital course: Details of patient's surgery can be found in operative report. Patient tolerated the procedure well and was subsequently transported to orthopedic floor. Patient's orthopeidc and medical care was provided daily. Patient had daily laboratory tests performed for evaluation of overall blood counts. Patient had daily physical therapy to include strengthening range of motion as well as education with walker ambulation. Patient was treated with aspirin for their postoperative DVT prophylaxis during their inpatient stay. Patient was noted to have a relatively uneventful postoperative course. Patient reported satisfactory pain control with oral pain medications by postoperative day 1. Patient showed satisfactory progress with physical therapy. Patient moved steadily through the program and had no difficulty meeting the goals by postoperative day 1. Given patient's otherwise satisfactory course and having met physical therapy goals, plan is to discharge patient home on postoperative day 1. Discharge condition/disposition: Patient will be discharged home in stable condition. Discharge medications: Instructions are given on resumption of patient's normal daily medications per primary care recommendation, in addition patient will be prescribed [place] 7.5 mg / 325 mg, senna S, aspirin 81 mg. Discharge instructions: 1. Wound care and infection precautions, keep incision dry and covered while showering, no lotions, creams, moisturizers. No soaking, tubs, pools, hottubs. Do not scrub over the incision. 2. Weight-bear as tolerated with walker / cane until follow-up. 3. Ice and elevate when necessary. Do not exceed 20 minutes per hour with ice pack. 4. Utilize compression sleeve until seen at first follow up appointment. 5. Visiting nursing care. 6. Home physical therapy including home CPM. 7. Pain meds and anticoagulants per prescription. 8. Pain medication has potential to cause constipation. Increase oral fluid and fiber intake. Contact primary care provider if you have not had a bowel movement within 48 hours after discharge 9. No anti-inflammatory medication until discussed at first post operative visit, this including Motrin, Aleve, Mobic, Diclofenac. 10. Follow up in office at 2 weeks postop with Johnson Bales PA-C/Cholo Blevins 11. Follow up with your primary care doctor 7-10 days after discharge. 12. Contact [facility] with any questions, . Procedures: Left total knee arthroplasty Patient Condition at Discharge: Good Plan - Discharge Summary Discharge Rx Participant: No New Discharge Prescriptions: New HYDROcodone/APAP 7.5-325MG [[place] 7.5] 1 each PO Q4H PRN #42 tab PRN Reason: Pain Sennosides/Docusate Sodium [Senna-S 8.6-50 mg Tablet] 2 each PO DAILY PRN #30 tablet PRN Reason: Constipation Aspirin [Adult Low Dose Aspirin EC] 81 mg PO BID #60 tab cefaDROXiL [Duricef] 500 mg PO Q12HR 5 Days #10 cap No Action amLODIPine [Norvasc] 5 mg PO QAM Pregabalin [Lyrica] 75 mg PO BID buPROPion XL [Wellbutrin XL] 300 mg PO DAILY Celecoxib [CeleBREX] 200 mg PO DAILY Cholecalciferol (Vitamin D3) [Vitamin D3 (50 Mcg = 2000 Iu)] 50 mcg PO DAILY Cetirizine HCl [Zyrtec] 10 mg PO QAM metFORMIN HCL [Glucophage] 500 mg PO BID Losartan [Cozaar] 50 mg PO QAM Ibuprofen [Motrin Ib] 200 mg PO Q6H PRN PRN Reason: Pain Zinc Gluconate [Zinc] 50 mg PO DAILY Discharge Medication List Cetirizine HCl [Zyrtec] 10 mg PO QAM 11/25/21 [History] Losartan [Cozaar] 50 mg PO QAM 11/17/22 [History] amLODIPine [Norvasc] 5 mg PO QAM 11/17/22 [History] metFORMIN HCL [Glucophage] 500 mg PO BID 11/17/22 [History] Ibuprofen [Motrin Ib] 200 mg PO Q6H PRN 06/07/23 [History] Celecoxib [CeleBREX] 200 mg PO DAILY 08/01/24 [History] Cholecalciferol (Vitamin D3) [Vitamin D3 (50 Mcg = 2000 Iu)] 50 mcg PO DAILY 08/01/24 [History] Pregabalin [Lyrica] 75 mg PO BID 08/01/24 [History] Zinc Gluconate [Zinc] 50 mg PO DAILY 08/01/24 [History] buPROPion XL [Wellbutrin XL] 300 mg PO DAILY 08/01/24 [History] Aspirin [Adult Low Dose Aspirin EC] 81 mg PO BID #60 tab 08/08/24 [Rx] HYDROcodone/APAP 7.5-325MG [[place] 7.5] 1 each PO Q4H PRN #42 tab 08/08/24 [Rx] Sennosides/Docusate Sodium [Senna-S 8.6-50 mg Tablet] 2 each PO DAILY PRN #30 tablet 08/08/24 [Rx] cefaDROXiL [Duricef] 500 mg PO Q12HR 5 Days #10 cap 08/08/24 [Rx] Follow up Appointment(s)/Referral(s): Dominick Bales PAC [PHYSICIAN [employer] MACHINE OPERATOR] - 2 Weeks Activity/Diet/Wound Care/Special Instructions: Orthopedic Discharge Instructions: 1. Wound care and infection precautions, keep incision dry and covered while showering, no lotions, creams, moisturizers. No soaking, pools, hot tubs. Do not scrub over incision. 2. Weight-bear as tolerated with walker / cane until follow-up. 3. Ice and elevate when necessary. Do not exceed 20 minutes per hour with ice pack. 4. Utilize compression sleeve until seen at first follow up appointment. 5. Pain meds and anticoagulants per prescription. 6. Pain medication has potential to cause constipation. Increase oral fluid and fiber intake. Contact primary care provider if you have not had a bowel movement within 48 hours after discharge. 7. No anti-inflammatory medication until discussed at first post operative visit, this including Motrin, Aleve, Mobic, Diclofenac. 8. Follow up in office at 2 weeks postop with Johnson Bales PA-C/Chloo Brenner PA-C 9. Follow up with your primary care doctor 7-10 days after discharge. 10. Contact [facility] with any questions, . Wound care instructions: 1. Okay to shower directly over the incision as of 08/10/2024 2. Basic manage over the incision Discharge Disposition: HOME WITH HOME HEALTH SERVICES
--- NOTE | 2024-08-08 10:07 | P.CONS ---
History of Present Illness - Reason for Consult Consult date: 08/08/24 medical management Requesting physician: Jon Dejesus - History of Present Illness Paola Baig is a 54-year-old female patient sent for an elective left knee arthroplasty with Dr. Dejesus on 08/07/2024. Patient has a past medical history of diabetes mellitus, hypertension, muscular skeletal disorder, cervical cancer and anemia. Patient is currently postop day 1 sitting comfortably in chair patient complaining about some discomfort. Current lab work showing white blood cell 6.06, hemoglobin 12.8, platelet count 107. Vital signs temp 97.8, heart rate 72, respiratory rate 16, blood pressure 129/65 with pulse ox of 93% on room air. Patient denies chest pain or shortness of breath. Patient denies nausea vomiting or diarrhea. Patient denies any urinary burning or frequency. Anticipate discharge home possibly today per orthopedic services Review of Systems Please refer to HPI otherwise unremarkable Past Medical History Past Medical History: Diabetes Mellitus, Hypertension, Musculoskeletal Disorder, Osteoarthritis (OA), Seizure Disorder Additional Past Medical History / Comment(s): hx. cervical cancer, epilepsy as a child, grew out of, no longer needs meds, lower back stenosis, neuropathy in legs, past hx. of anemia, years ago was thought pt. might have leukemia due to labs but it was ruled out, unsure why platelets are lower than normal, doesn't see anyone for History of Any Multi-Drug Resistant Organisms: None Reported Past Surgical History: Hysterectomy, Orthopedic Surgery, Tonsillectomy Additional Past Surgical History / Comment(s): partial hysterectomy due to fibroids, right wrist surg., CTS left wrist 06/27/23, left trigger finger surg, Left TKA Past Anesthesia/Blood Transfusion Reactions: Postoperative Nausea & Vomiting (PONV) Additional Past Anesthesia/Blood Transfusion Reaction / Comm: PONV one time after hyst., no problem w/transfusion in past Past Psychological History: Depression Smoking Status: Never smoker Past Alcohol Use History: Occasional Past Drug Use History: None Reported - Past Family History Father Family Medical History: Cancer Additional Family Medical History / Comment(s): colon and lung cancer Mother Family Medical History: Cancer Additional Family Medical History / Comment(s): Throat and lung cancer/hx of smoking. Medications and Allergies Home Medications Medication Instructions Recorded Confirmed Type Cetirizine HCl [Zyrtec] 10 mg PO QAM 11/25/21 08/01/24 History Losartan [Cozaar] 50 mg PO QAM 11/17/22 08/01/24 History amLODIPine [Norvasc] 5 mg PO QAM 11/17/22 08/01/24 History metFORMIN HCL [Glucophage] 500 mg PO BID 11/17/22 08/01/24 History Ibuprofen [Motrin Ib] 200 mg PO Q6H PRN 06/07/23 08/01/24 History Celecoxib [CeleBREX] 200 mg PO DAILY 08/01/24 08/01/24 History Cholecalciferol (Vitamin D3) 50 mcg PO DAILY 08/01/24 08/01/24 History [Vitamin D3 (50 Mcg = 2000 Iu)] Pregabalin [Lyrica] 75 mg PO BID 08/01/24 08/01/24 History Zinc Gluconate [Zinc] 50 mg PO DAILY 08/01/24 08/01/24 History buPROPion XL [Wellbutrin XL] 300 mg PO DAILY 08/01/24 08/01/24 History Aspirin [Adult Low Dose Aspirin EC] 81 mg PO BID #60 tab 08/08/24 Rx HYDROcodone/APAP 7.5-325MG [[place] 1 each PO Q4H PRN #42 tab 08/08/24 Rx 7.5] Sennosides/Docusate Sodium 2 each PO DAILY PRN #30 tablet 08/08/24 Rx [Senna-S 8.6-50 mg Tablet] cefaDROXiL [Duricef] 500 mg PO Q12HR 5 Days #10 cap 08/08/24 Rx Allergies Allergy/AdvReac Type Severity Reaction Status Date / Time adhesive tape Allergy Rash/Hives Verified 08/01/24 10:53 bandaid Allergy Rash/Hives Uncoded 08/01/24 10:53 Physical Exam Vitals: Vital Signs Temp Pulse Pulse Pulse Resp BP BP 08/08/24 07:05 97.8 F 72 16 129/65 08/08/24 00:35 97.9 F 82 15 122/79 08/07/24 19:35 97.4 F L 77 15 131/80 08/07/24 17:50 81 129/71 08/07/24 17:35 78 127/70 08/07/24 17:20 79 134/77 08/07/24 17:05 88 143/78 08/07/24 16:50 82 139/83 08/07/24 16:35 77 134/82 08/07/24 16:20 98.2 F 87 18 144/83 08/07/24 15:58 82 16 159/76 08/07/24 15:43 79 16 149/83 08/07/24 15:27 79 15 149/84 08/07/24 15:12 83 18 140/86 08/07/24 14:57 97.2 F L 85 14 139/83 08/07/24 12:04 77 16 123/67 08/07/24 11:26 98 F 81 18 142/70 Pulse Ox 08/08/24 07:05 93 L 08/08/24 00:35 96 08/07/24 19:35 96 08/07/24 17:50 92 L 08/07/24 17:35 91 L 08/07/24 17:20 92 L 08/07/24 17:05 93 L 08/07/24 16:50 94 L 08/07/24 16:35 92 L 08/07/24 16:20 93 L 08/07/24 15:58 94 L 08/07/24 15:43 93 L 08/07/24 15:27 97 08/07/24 15:12 96 08/07/24 14:57 96 08/07/24 12:04 96 08/07/24 11:26 96 Intake and Output 08/07/24 08/08/24 08/08/24 22:59 06:59 14:59 Intake Total 890 1650 Balance 890 1650 Intake: IV 350 Oral 540 1650 Other: Voiding Method Toilet # Voids 2 3 1 Weight 104.1 kg Head normocephalic Neck supple Lungs clear to auscultation bilaterally no wheezing or crackles Heart regular rate and rhythm S1-S2, no rub or gallop Abdomen is soft nontender nondistended positive bowel sounds no hepatosplenomegaly Extremities no edema. Left knee dressing clean dry and intact Neuro alert and orientated to 3 Results CBC & Chem 7: 08/08/24 03:44 Labs: Abnormal Lab Results - Last 24 Hours (Table) 08/07/24 08/07/24 08/07/24 Range/Units 15:33 16:47 20:05 Plt Count (140-440) X 10*3/uL Lymphocytes # (0.90-5.00) X 10*3/uL Eosinophils # (0.04-0.35) X 10*3/uL POC Glucose (mg/dL) 140 H 144 H 133 H (70-110) mg/dL 08/08/24 08/08/24 Range/Units 03:44 06:06 Plt Count 107 L (140-440) X 10*3/uL Lymphocytes # 0.48 L (0.90-5.00) X 10*3/uL Eosinophils # 0 L (0.04-0.35) X 10*3/uL POC Glucose (mg/dL) 118 H (70-110) mg/dL Assessment and Plan Assessment: 1. Status post left knee arthroplasty with Dr. Frank on 08/07/2024 2. History of essential hypertension 3. History of diabetes mellitus 4. History of seizure disorder 5. History of osteoarthritis with failed conservative management Thank you for this consultation we will continue to follow patient closely throughout stay Time with Patient: Greater than 30 (Greater than 60% of the total time spent in counseling and coordination of care)
[2024-08-08 11:39] LABS: Glucose,Whole Blood 113 mg/dL (70-110)
== END 2024-08-08 13:16 | disposition home health service (06) ==
LOC: OR 10:41 → 4SSUR 14:55 → OR 08-08 13:16
PROVIDERS: ATTEND Orthopaedic Surgery
DX: M17.12 Unilateral primary osteoarthritis, left knee (principal); I10 Essential (primary) hypertension; E11.9 Type 2 diabetes mellitus without complications; Z90.710 Acquired absence of both cervix and uterus; Z96.652 Presence of left artificial knee joint; Z79.82 Long term (current) use of aspirin; Z79.84 Long term (current) use of oral hypoglycemic drugs; Z79.899 Other long term (current) drug therapy
CPT/HCPCS: 73560; 27447; 64448; 64473; J2250; J1171 ×2; J1100; J0690 ×2; J2405; J2795; 64474; 85025